=== PATIENT | male | born 1955 ===

== ENCOUNTER 2017-10-07 16:27 | Inpatient (IN) | payer MEDICARE, OTHER ==
[2017-10-07 17:37] LABS: % BASOPHILS 0.9 % (0.0-2.0); % EOSINOPHILS 0.6 % (0.0-5.0); % LYMPHOCYTES 24.1 % (20.0-50.0); % MONOCYTES 5.5 % (2.0-10.0); % NEUTROPHILS 68.9 % (40.0-80.0); BASOPHILE ABSOLUTE 0.1 Th/cumm (0-0.2); HEMATOCRIT 46.8 % (41.0-60); HEMOGLOBIN 15.4 gm/dL (12-16); LYMPHOCYTE ABSOLUTE 1.5 Th/cmm (1.5-3.0); MEAN CELL VOLUME 91.1 fl (80-99); MEAN PLATELET VOLUME 8.9 fl; MONOCYTE ABSOLUTE 0.3 Th/cmm (0.3-1.0); NEUTROPHILE ABSOLUTE 4.3 Th/cmm (1.8-8.0); PLATELET COUNT 184 Th/cmm (150-400); RED BLOOD COUNT 5.13 Mil/cmm (4.30-5.70); RED CELL DISTRIBUTION WIDTH 12.5 % (11.5-20.0); WHITE BLOOD COUNT 6.2 Th/cmm (4.8-10.8)
[2017-10-07 17:50] LABS: INR 0.98 (0.5-1.4); PROTHROMBIN TIME (TEST) 10.2 SECONDS (9.5-11.5)
[2017-10-07 17:56] LABS: ACETAMINOPHEN < 10.0 ug/mL (10.0-30.0); ALB/GLOB RATIO 1.5 (1.0-1.8); ALBUMIN 4.1 gm/dL (4.2-5.5); ALKALINE PHOSPHATASE 59 U/L (34-104); ANION GAP 14.8 (7.0-16.0); BILIRUBIN,TOTAL 0.8 mg/dL (0.3-1.0); BUN - UREA NITROGEN 21 mg/dL (7-25); CALCIUM SERUM 9.6 mg/dL (8.6-10.3); CARBON DIOXIDE 21.8 mEq/L (21.0-31.0); CHLORIDE 99 mEq/L (98-107); CREATININE - SERUM 0.7 mg/dL (0.7-1.3); GFR AFRICAN-AMERICAN > 60.0 ml/min (>90); GFR NON AFRICAN-AMERICAN > 60.0 ml/min; GLUCOSE 345 mg/dL (70-105); POTASSIUM SERUM 4.6 mEq/L (3.5-5.1); SALICYLATES (ASPIRIN) < 25.0 mg/L (30.0-100.0); SGOT 16 U/L (13-39); SGPT/ALT 10 U/L (7-52); SODIUM SERUM 131 mEq/L (136-145); TOTAL PROTEIN,SERUM 6.9 gm/dL (6.0-8.3)
[2017-10-07 17:58] LABS: URINE SOURCE CLEAN C
[2017-10-07 18:11] LABS: AMPHETAMINE URINE NEGATIVE (NEGATIVE); BARBITURATES URINE NEGATIVE (NEGATIVE); BENZODIAZEPINES QUAL URINE NEGATIVE (NEGATIVE); CANNABINOID THC NEGATIVE (NEGATIVE); COCAINE METABOLITE QUAL URINE NEGATIVE (NEGATIVE); METHADONE URINE NEGATIVE (NEGATIVE); METHAMPHETAMINES QUAL URINE NEGATIVE (NEGATIVE); OPIATES (MORPHINE) QUAL. URINE NEGATIVE (NEGATIVE); PHENCYCLIDINE (PCP) URINE NEGATIVE (NEGATIVE); TRICYCLICS (TCA) QUAL. URINE NEGATIVE (NEGATIVE)
[2017-10-07 18:12] LABS: URINE CLARITY HAZY (CLEAR); URINE COLOR YELLOW; URINE MICROSCOPIC INDICATED? YES
[2017-10-07 18:13] LABS: URINE BILIRUBIN NEGATIVE (NEGATIVE); URINE GLUCOSE (UA) >=1000 mg/dL (NEGATIVE); URINE KETONE NEGATIVE (NEGATIVE); URINE LEUKOCYTE ESTERASE NEGATIVE (NEGATIVE); URINE NITRATE POSITIVE (NEGATIVE)
[2017-10-07 18:14] LABS: URINE BLOOD NEGATIVE (NEGATIVE); URINE PH 5.5 (4.6 - 8.0); URINE PROTEIN TRACE mg/dL (NEGATIVE); URINE UROBILINOGEN 0.2 E.U./dL (0.2 - 1.0)
[2017-10-07 18:16] LABS: URINE BACTERIA 3+ /hpf (NONE SEEN); URINE EPITHELIAL CELLS OCCASIONAL /lpf (FEW); URINE RBC 0-2 /hpf (0-5)
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
[2017-10-07] MEDS ORDERED: Sulfamethoxazole/TMP 800/160mg Tab PO ONE (18:39)
[2017-10-07] MEDS ORDERED: Sulfamethoxazole/TMP 800/160mg Tab ONE (18:41)
[2017-10-07 22:02] VITALS: BP 103/53
[2017-10-08] MEDS: INSULIN ASPART SLIDING SCALE 100 UNITS/ML UNIT SUBQ SCH ×2 (07:09→12:13)
--- NOTE | 2017-10-08 09:17 | Diagnostic Imaging Report ---
Portable chest x-ray HISTORY: Shortness of breath. The heart is enlarged. No focal pulmonary processes. No hilar or mediastinal abnormalities. IMPRESSION: 1. No acute abnormalities 2. Cardiomegaly
--- NOTE | 2017-10-08 11:20 | Psychiatric Evaluation ---
DATE OF SERVICE: 10/07/2017 AGE: 62. SEX: Male. PHYSICIAN: Dr. Goldsmith. CHIEF COMPLAINT: Increased agitation and psychotic features. HISTORY OF PRESENT ILLNESS: The patient is a 62-year-old male who was transferred to the hospital because of increased agitation and irritability. The patient has been unable to follow any of the staff's directions and has been increasingly [facility]. The patient also has not been cooperative with staff and not cooperative with his treatment. The patient also has been in irritable and angry mood. The patient is on wheelchair. "I don't wanna be here. I want to go back." The patient did not know where he came from and he is argumentative and in angry mood. He was not able to tell me where he lives and he kept insisting that he wants to leave. Also, according to the evaluation report, it seems that the patient has been hearing voices and has been paranoid. He also seems to be restless. The patient also was not able to follow any of my instructions and when I was trying to calm him down he was not able to follow directions and kept agitated and rambling. PAST PSYCHIATRIC HISTORY: The patient has history of what seems to be is schizoaffective disorder. The patient has been taking Zyprexa and trazodone. PAST MEDICAL HISTORY: The patient has hypothyroidism as well as dyslipidemia and diabetes mellitus. Also, has a knee effusion and the patient is on wheelchair. SOCIAL HISTORY: The patient lives in [facility]. He denies any alcohol or street drug use. No legal issues. ALLERGIES: No known allergies. MENTAL STATUS EXAMINATION: The patient appears older than stated age, on the wheelchair. Agitated and in irritable mood. Thought processes are circumstantial with flight of ideas. The patient denied auditory or visual hallucinations, but actively responding to stimuli. The patient denies any suicidal or homicidal ideations. The patient is alert and oriented to time, place, person, and situation. Unable to assess his memory at this time, although it seems to be impaired for short-term memory and he was not able to tell me where does he live or any other information about his current living arrangement. Seems to be of average intelligence based on his verbal ability. ASSESSMENT: PRIMARY DIAGNOSES: Schizoaffective disorder, bipolar type, severe, with psychotic features. TREATMENT PLAN: Continue to monitor his behavior and his condition closely. Also, we will monitor psychotropic medications and will restart the Zyprexa and adjust the dose. ESTIMATED LENGTH OF STAY: 5-7 days. THE PATIENT'S STRENGTHS AND WEAKNESSES: The patient's strength is not clear at this time. Weaknesses are his agitation and poor impulse control. AFTER DISCHARGE PLAN: Outpatient treatment and followup will continue as an outpatient. CRITERIA FOR DISCHARGE: The patient will not be agitated or psychotic and will stabilize psychotropic medications and will establish outpatient treatment plans. JOB# [id number]
--- NOTE | 2017-10-08 14:45 | Internal Medicine Prog Note ---
Internal Medicine Subjective - Subjective Service Date: 10/08/17 ([id number] hn ) Internal Medicine Objective - Results Result Diagrams: 10/07/17 17:34 10/07/17 17:34 Recent Labs: Laboratory Last Values WBC 6.2 Th/cmm (4.8-10.8) 10/07/17 17:34 RBC 5.13 Mil/cmm (4.30-5.70) 10/07/17 17:34 Hgb 15.4 gm/dL (12-16) 10/07/17 17:34 Hct 46.8 % (41.0-60) 10/07/17 17:34 MCV 91.1 fl (80-99) 10/07/17 17:34 MCH 30.0 pg (26.0-30.0) 10/07/17 17:34 MCHC Differential 33.0 pg (28.0-36.0) 10/07/17 17:34 RDW 12.5 % (11.5-20.0) 10/07/17 17:34 Plt Count 184 Th/cmm (150-400) 10/07/17 17:34 MPV 8.9 fl 10/07/17 17:34 Neutrophils % 68.9 % (40.0-80.0) 10/07/17 17:34 Lymphocytes % 24.1 % (20.0-50.0) 10/07/17 17:34 Monocytes % 5.5 % (2.0-10.0) 10/07/17 17:34 Eosinophils % 0.6 % (0.0-5.0) 10/07/17 17:34 Basophils % 0.9 % (0.0-2.0) 10/07/17 17:34 PT 10.2 SECONDS (9.5-11.5) 10/07/17 17:34 INR 0.98 (0.5-1.4) 10/07/17 17:34 Sodium 131 mEq/L (136-145) L 10/07/17 17:34 Potassium 4.6 mEq/L (3.5-5.1) 10/07/17 17:34 Chloride 99 mEq/L (98-107) 10/07/17 17:34 Carbon Dioxide 21.8 mEq/L (21.0-31.0) 10/07/17 17:34 Anion Gap 14.8 (7.0-16.0) 10/07/17 17:34 BUN 21 mg/dL (7-25) 10/07/17 17:34 Creatinine 0.7 mg/dL (0.7-1.3) 10/07/17 17:34 Est GFR ( Amer) > 60.0 ml/min (>90) 10/07/17 17:34 Est GFR (Non-Af Amer) > 60.0 ml/min 10/07/17 17:34 BUN/Creatinine Ratio 30.0 10/07/17 17:34 Glucose 345 mg/dL (70-105) H 10/07/17 17:34 POC Glucose 239 MG/DL (70 - 105) H 10/08/17 05:50 Calcium 9.6 mg/dL (8.6-10.3) 10/07/17 17:34 Total Bilirubin 0.8 mg/dL (0.3-1.0) 10/07/17 17:34 AST 16 U/L (13-39) 10/07/17 17:34 ALT 10 U/L (7-52) 10/07/17 17:34 Alkaline Phosphatase 59 U/L (34-104) 10/07/17 17:34 Total Protein 6.9 gm/dL (6.0-8.3) 10/07/17 17:34 Albumin 4.1 gm/dL (4.2-5.5) L 10/07/17 17:34 Globulin 2.8 gm/dL 10/07/17 17:34 Albumin/Globulin Ratio 1.5 (1.0-1.8) 10/07/17 17:34 Urine Source CLEAN C 10/07/17 17:51 Urine Color YELLOW 10/07/17 17:51 Urine Clarity HAZY (CLEAR) 10/07/17 17:51 Urine pH 5.5 (4.6 - 8.0) 10/07/17 17:51 Ur Specific [place] 1.020 (1.005-1.030) 10/07/17 17:51 Urine Protein TRACE mg/dL (NEGATIVE) 10/07/17 17:51 Urine Glucose (UA) >=1000 mg/dL (NEGATIVE) H 10/07/17 17:51 Urine Ketones NEGATIVE mg/dL (NEGATIVE) 10/07/17 17:51 Urine Blood NEGATIVE (NEGATIVE) 10/07/17 17:51 Urine Nitrate POSITIVE (NEGATIVE) H 10/07/17 17:51 Urine Bilirubin NEGATIVE (NEGATIVE) 10/07/17 17:51 Urine Urobilinogen 0.2 E.U./dL (0.2 - 1.0) 10/07/17 17:51 Ur Leukocyte Esterase NEGATIVE (NEGATIVE) 10/07/17 17:51 Urine RBC 0-2 /hpf (0-5) H 10/07/17 17:51 Urine WBC 6-10 /hpf (0-5) 10/07/17 17:51 Ur Epithelial Cells OCCASIONAL /lpf (FEW) 10/07/17 17:51 Urine Bacteria 3+ /hpf (NONE SEEN) H 10/07/17 17:51 Salicylates < 25.0 mg/L (30.0-100.0) L 10/07/17 17:34 Urine Opiates Screen NEGATIVE (NEGATIVE) 10/07/17 17:51 Urine Methadone Screen NEGATIVE (NEGATIVE) 10/07/17 17:51 Acetaminophen < 10.0 ug/mL (10.0-30.0) L 10/07/17 17:34 Ur Barbiturates Screen NEGATIVE (NEGATIVE) 10/07/17 17:51 Ur Tricyclics Screen NEGATIVE (NEGATIVE) 10/07/17 17:51 Ur Phencyclidine Scrn NEGATIVE (NEGATIVE) 10/07/17 17:51 Amphetamines Screen NEGATIVE (NEGATIVE) 10/07/17 17:51 U Methamphetamines Scrn NEGATIVE (NEGATIVE) 10/07/17 17:51 U Benzodiazepines Scrn NEGATIVE (NEGATIVE) 10/07/17 17:51 U Cocaine Metab Screen NEGATIVE (NEGATIVE) 10/07/17 17:51 U Cannabinoids Screen NEGATIVE (NEGATIVE) 10/07/17 17:51 Ethyl Alcohol < 10 mg/dL (0-10) 10/07/17 17:34 - Physical Exam Vitals and I&O: Vital Signs Temp 98.2 F 10/08/17 14:28 Pulse 78 10/08/17 14:28 Resp 16 10/08/17 14:28 BP 107/54 10/08/17 14:28 Pulse Ox 95 10/08/17 14:28 Intake & Output 10/07/17 10/08/17 10/08/17 18:59 06:59 18:59 Weight (lbs) 156 lb Other: Weight Source Estimated Active Medications: Current Medications Acetaminophen (Tylenol) 650 mg PO Q4HR PRN PRN Reason: Mild Pain / Temp above 100 Stop: 12/06/17 21:40 Atorvastatin Calcium (Lipitor) 10 mg PO HS GABRIELLE; Protocol Stop: 12/07/17 20:59 Glyburide (Diabeta) 5 mg PO BIDAC [facility]LE Stop: 12/07/17 16:29 Hydroxyzine Pamoate (Vistaril) 50 mg PO BID [facility]ELLE; Protocol Stop: 12/07/17 08:59 Last Admin: 10/08/17 09:11 Dose: 50 mg Insulin Aspart (Novolog) 0 units SUBQ ACHS [facility]ELLE; Protocol Stop: 12/07/17 16:29 Levothyroxine Sodium (Synthroid) 0.025 mg PO QDAC [facility]LE Stop: 12/08/17 07:29 Lorazepam (Ativan) 0.5 mg PO Q4HR PRN; Protocol PRN Reason: Anxiety Stop: 11/06/17 21:40 Last Admin: 10/08/17 09:11 Dose: 0.5 mg Metformin HCl (Glucophage) 850 mg PO TID G[facility]RIELLE Stop: 12/07/17 13:59 Last Admin: 10/08/17 14:16 Dose: 850 mg Olanzapine (Zyprexa) 15 mg PO HS G[facility]RIELLE; Protocol Stop: 12/07/17 20:59 Trazodone HCl (Desyrel) 50 mg PO HS GABRIELLE; Protocol Stop: 12/07/17 20:59 Zolpidem Tartrate (Ambien) 5 mg PO HS PRN PRN Reason: Insomnia Stop: 12/06/17 21:40
--- NOTE | 2017-10-08 17:07 | History & Physical ---
ADMIT DATE: 10/08/2017 This is a history and physical dictated for Dr. Lavell Cunningham. CHIEF COMPLAINT: Agitation. HISTORY OF PRESENT ILLNESS: This is a 62-year-old male, who is a resident of [facility], who was admitted here to the Geropsych Unit due to agitation and hearing voices. PAST MEDICAL HISTORY: Diabetes, dyslipidemia, hypothyroid, right knee effusion, right hip disorder and bunion. SOCIAL HISTORY: The patient is currently a smoker. The patient resides at a residential requiring 24-hour nursing care. PAST SURGICAL HISTORY: Right knee effusion. PSYCHIATRIC HISTORY: Paranoid schizophrenia. FAMILY HISTORY: Noncontributory. REVIEW OF SYSTEMS: GENERAL: Denies any fevers and chills. CARDIOVASCULAR: Denies chest pain. RESPIRATORY: Denies shortness of breath. GASTROINTESTINAL: Denies nausea, vomiting, or abdominal pain. GENITOURINARY: Denies increased frequency or dysuria. NEUROLOGIC: No headaches, seizures, or syncope.. All systems are reviewed and are negative. PHYSICAL EXAMINATION: GENERAL: The patient is awake, alert, irritated, no apparent distress. VITAL SIGNS: Temperature 98.2, heart rate 78, blood pressure 107/54, respirations 16, O2 95%. HEENT: Head is normocephalic, atraumatic. NECK: Supple. No mass. LUNGS: Clear bilaterally. HEART: Regular rhythm. . ABDOMEN: Soft, nontender. LABORATORY DATA: WBC 6.2, H and H 15.4 and 46.8, platelets of 184. Sodium 131, potassium 4.6, chloride 99, BUN 21, creatinine 0.7. The patient had a urinalysis done, positive for UTI. ASSESSMENT: 1. Agitation. 2. Acute urinary tract infection. 3. Diabetes. 4. Dyslipidemia. 5. Hypothyroid. 6. History of right knee effusion and right hip disorder. PLAN: We will do Accu-Cheks with high dose sliding scale. Fall precautions will be initiated. We add Levaquin for acute UTI. We will continue to monitor this patient. JOB# [id number]
[2017-10-08 17:24] LABS: A1C % 9.5 % (4.0-6.0)
[2017-10-08] MEDS: Atorvastatin Calcium 10 MG TAB PO SCH (21:10)
[2017-10-08] MEDS: INSULIN ASPART, RECOMBINANT 100 UNITS/ML SUBQ SCH (21:33)
[2017-10-09] MEDS: INSULIN ASPART, RECOMBINANT 100 UNITS/ML SUBQ SCH ×5 (06:46→20:51)
[2017-10-09] MEDS: Levothyroxine 0.025 Mg Tab PO SCH (06:53)
--- NOTE | 2017-10-09 15:12 | Internal Medicine Prog Note ---
Internal Medicine Subjective - Subjective Service Date: 10/09/17 Patient seen and examined:: with staff Patient is:: awake Per staff patient has:: tolerating meds Internal Medicine Objective - Results Result Diagrams: 10/07/17 17:34 10/07/17 17:34 Recent Labs: Laboratory Last Values WBC 6.2 Th/cmm (4.8-10.8) 10/07/17 17:34 RBC 5.13 Mil/cmm (4.30-5.70) 10/07/17 17:34 Hgb 15.4 gm/dL (12-16) 10/07/17 17:34 Hct 46.8 % (41.0-60) 10/07/17 17:34 MCV 91.1 fl (80-99) 10/07/17 17:34 MCH 30.0 pg (26.0-30.0) 10/07/17 17:34 MCHC Differential 33.0 pg (28.0-36.0) 10/07/17 17:34 RDW 12.5 % (11.5-20.0) 10/07/17 17:34 Plt Count 184 Th/cmm (150-400) 10/07/17 17:34 MPV 8.9 fl 10/07/17 17:34 Neutrophils % 68.9 % (40.0-80.0) 10/07/17 17:34 Lymphocytes % 24.1 % (20.0-50.0) 10/07/17 17:34 Monocytes % 5.5 % (2.0-10.0) 10/07/17 17:34 Eosinophils % 0.6 % (0.0-5.0) 10/07/17 17:34 Basophils % 0.9 % (0.0-2.0) 10/07/17 17:34 PT 10.2 SECONDS (9.5-11.5) 10/07/17 17:34 INR 0.98 (0.5-1.4) 10/07/17 17:34 Sodium 131 mEq/L (136-145) L 10/07/17 17:34 Potassium 4.6 mEq/L (3.5-5.1) 10/07/17 17:34 Chloride 99 mEq/L (98-107) 10/07/17 17:34 Carbon Dioxide 21.8 mEq/L (21.0-31.0) 10/07/17 17:34 Anion Gap 14.8 (7.0-16.0) 10/07/17 17:34 BUN 21 mg/dL (7-25) 10/07/17 17:34 Creatinine 0.7 mg/dL (0.7-1.3) 10/07/17 17:34 Est GFR ( Amer) > 60.0 ml/min (>90) 10/07/17 17:34 Est GFR (Non-Af Amer) > 60.0 ml/min 10/07/17 17:34 BUN/Creatinine Ratio 30.0 10/07/17 17:34 Glucose 345 mg/dL (70-105) H 10/07/17 17:34 POC Glucose 305 MG/DL (70 - 105) H 10/09/17 11:32 Hemoglobin A1c % 9.5 % (4.0-6.0) H 10/07/17 17:24 Calcium 9.6 mg/dL (8.6-10.3) 10/07/17 17:34 Total Bilirubin 0.8 mg/dL (0.3-1.0) 10/07/17 17:34 AST 16 U/L (13-39) 10/07/17 17:34 ALT 10 U/L (7-52) 10/07/17 17:34 Alkaline Phosphatase 59 U/L (34-104) 10/07/17 17:34 Total Protein 6.9 gm/dL (6.0-8.3) 10/07/17 17:34 Albumin 4.1 gm/dL (4.2-5.5) L 10/07/17 17:34 Globulin 2.8 gm/dL 10/07/17 17:34 Albumin/Globulin Ratio 1.5 (1.0-1.8) 10/07/17 17:34 Urine Source CLEAN C 10/07/17 17:51 Urine Color YELLOW 10/07/17 17:51 Urine Clarity HAZY (CLEAR) 10/07/17 17:51 Urine pH 5.5 (4.6 - 8.0) 10/07/17 17:51 Ur Specific [place] 1.020 (1.005-1.030) 10/07/17 17:51 Urine Protein TRACE mg/dL (NEGATIVE) 10/07/17 17:51 Urine Glucose (UA) >=1000 mg/dL (NEGATIVE) H 10/07/17 17:51 Urine Ketones NEGATIVE mg/dL (NEGATIVE) 10/07/17 17:51 Urine Blood NEGATIVE (NEGATIVE) 10/07/17 17:51 Urine Nitrate POSITIVE (NEGATIVE) H 10/07/17 17:51 Urine Bilirubin NEGATIVE (NEGATIVE) 10/07/17 17:51 Urine Urobilinogen 0.2 E.U./dL (0.2 - 1.0) 10/07/17 17:51 Ur Leukocyte Esterase NEGATIVE (NEGATIVE) 10/07/17 17:51 Urine RBC 0-2 /hpf (0-5) H 10/07/17 17:51 Urine WBC 6-10 /hpf (0-5) 10/07/17 17:51 Ur Epithelial Cells OCCASIONAL /lpf (FEW) 10/07/17 17:51 Urine Bacteria 3+ /hpf (NONE SEEN) H 10/07/17 17:51 Salicylates < 25.0 mg/L (30.0-100.0) L 10/07/17 17:34 Urine Opiates Screen NEGATIVE (NEGATIVE) 10/07/17 17:51 Urine Methadone Screen NEGATIVE (NEGATIVE) 10/07/17 17:51 Acetaminophen < 10.0 ug/mL (10.0-30.0) L 10/07/17 17:34 Ur Barbiturates Screen NEGATIVE (NEGATIVE) 10/07/17 17:51 Ur Tricyclics Screen NEGATIVE (NEGATIVE) 10/07/17 17:51 Ur Phencyclidine Scrn NEGATIVE (NEGATIVE) 10/07/17 17:51 Amphetamines Screen NEGATIVE (NEGATIVE) 10/07/17 17:51 U Methamphetamines Scrn NEGATIVE (NEGATIVE) 10/07/17 17:51 U Benzodiazepines Scrn NEGATIVE (NEGATIVE) 10/07/17 17:51 U Cocaine Metab Screen NEGATIVE (NEGATIVE) 10/07/17 17:51 U Cannabinoids Screen NEGATIVE (NEGATIVE) 10/07/17 17:51 Ethyl Alcohol < 10 mg/dL (0-10) 10/07/17 17:34 - Physical Exam Vitals and I&O: Vital Signs Temp 98.2 F 10/08/17 14:28 Pulse 78 10/08/17 14:28 Resp 16 10/08/17 14:28 BP 107/54 10/08/17 14:28 Pulse Ox 95 10/08/17 14:28 Intake & Output 10/08/1718 10/09/17 18:59 06:59 18:59 Other: # Voids 3 # Bowel Movements 1 Active Medications: Current Medications Acetaminophen (Tylenol) 650 mg PO Q4HR PRN PRN Reason: Mild Pain / Temp above 100 Stop: 12/06/17 21:40 Atorvastatin Calcium (Lipitor) 10 mg PO HS [facility]; Protocol Stop: 12/07/17 20:59 Last Admin: 10/08/17 21:10 Dose: 10 mg Glyburide (Diabeta) 5 mg PO BIDAC [facility] Stop: 12/07/17 16:29 Last Admin: 10/09/17 06:53 Dose: Not Given Hydroxyzine Pamoate (Vistaril) 50 mg PO BID [facility]; Protocol Stop: 12/07/17 08:59 Last Admin: 10/09/17 08:44 Dose: 50 mg Insulin Aspart (Novolog) 0 units SUBQ ACHS [facility]; Protocol Stop: 12/07/17 16:29 Last Admin: 10/09/17 11:46 Dose: 6 units Levofloxacin (Levaquin) 500 mg PO DAILY [facility] Stop: 12/08/17 08:59 Last Admin: 10/09/17 08:44 Dose: 500 mg Levothyroxine Sodium (Synthroid) 0.025 mg PO QDAC [facility] Stop: 12/08/17 07:29 Last Admin: 10/09/17 06:53 Dose: Not Given Lorazepam (Ativan) 0.5 mg PO Q4HR PRN; Protocol PRN Reason: Anxiety Stop: 11/06/17 21:40 Last Admin: 10/08/17 09:11 Dose: 0.5 mg Metformin HCl (Glucophage) 850 mg PO TID [facility] Stop: 12/07/17 13:59 Last Admin: 10/09/17 13:41 Dose: Not Given Olanzapine (Zyprexa) 15 mg PO HS [facility]; Protocol Stop: 12/07/17 20:59 Last Admin: 10/08/17 21:10 Dose: 15 mg Trazodone HCl (Desyrel) 50 mg PO HS [facility]; Protocol Stop: 12/07/17 20:59 Last Admin: 10/08/17 21:10 Dose: 50 mg Zolpidem Tartrate (Ambien) 5 mg PO HS PRN PRN Reason: Insomnia Stop: 12/06/17 21:40 General: alert HEENT: NC/AT, PERRLA Neck: Supple Lungs: CTAB Cardiovascular: RRR, Normal S1, Normal S2, without murmur Extremities: excoriation Neurological: alert Internal Medicine Assmt/Plan - Assessment Assessment: acute uti with e.coli dm dyslipidemia hypothyroidism - Plan Plan: will add levaquin monitor bp continue current plan of care Nutritional Asmnt/Malnutr-PDOC - Dietary Evaluation Malnutrition Findings (Please click <Entered> for more info): Nutritional Asmnt/Malnutrition Start: 10/08/17 14: 31 Text: Status: Complete Freq: Protocol: Document 10/08/17 14:31 CARYN (Rec: 10/08/17 15:05 CARYN [id number]) Nutritional Asmnt/Malnutrition Patient General Information Nutritional Screening High Risk Diagnosis psychosis Pertinent Medical Hx/Surgical Hx DM, dyslipidemia, thyroid disorder, right knee fusion, gait abn, schizophrenia Subjective Information Pt seen on wheelchair waiting for ciggratte. Pt stated he did not like the lunch, he only likes burger and fries, mac & cheese, does not like any fruits or veggies. Glucose 345 at admission noted. Not able to provide diabetic education d/t pt mental status . Per EMR, pt consumed 100% of breakfast today. Current Diet [facility]/ [facility] Pertinent Medications diabeta, novolog, synthroid, glucophage Pertinent Labs 10/07 Na 131, glucose 345, POC 239 Nutritional Hx/Data Height 5 ft 4 in Height (Calculated Centimeters) 162.6 Current Weight (lbs) 156 lb Weight (Calculated Kilograms) 70.8 Weight (Calculated Grams) 26644.4 [place] Body Weight 130 Body Mass Index (BMI) 26.7 Weight Status Overweight GI Symptoms GI Symptoms None Last BM not indicated Difficult in: None Food Allergies Yes: seafood Skin Integrity/Comment: intact Current %PO Good (75-100%) Estimated Nutritional Goals BEE in Kcals: Using Current wt Calories/Kcals/Kg 23-27 Kcals Calculated 2965-1495 Protein: Using Current wt Protein g/k Protein Calculated 79 Fluid: ml 1817-2133ml (1ml/kcal) Nutritional Problem 1. Problem Problem altered nutrition related labs Etiology hx of DM Signs/Symptoms: glucose 345, POC 239 Malnutrition Alert Is there a minimum of two criteria No selected? Query Text:Check all the applicable criteria. A minimum of two criteria are recommended for diagnosis of either severe or non-severe malnutrition. Malnutrition Related to Morbid Obesity Malnutrition related to morbid obesity No Intervention/Recommendation Comments 1. Continue with CCHO 60gm diet as ordered. 2. Monitor PO intake, wt, labs and skin integrity 3. F/U as moderate risk in 3-5 days, 10/11-10/13, PO check Expected Outcomes/Goals Expected Outcomes/Goals 1. PO intake to meet at least 75% of nutritional needs. 2. Wt stability, skin to remain intact, labs to approach WNL.
[2017-10-09] MEDS: Atorvastatin Calcium 10 MG TAB PO SCH (20:48)
--- NOTE | 2017-10-09 23:23 | Progress Notes ---
DATE: 10/09/2017 Case was discussed with staff of the patient, reviewed records 62-year-old male who was admitted on 10/07/2017 because of agitation and psychosis. He was irritable, unable to follow staff direction and has been increasingly agitated in the [place] he [place]. This is a patient of mine seen at ____ [facility], has not been cooperative with the staff and in a very angry mood. He reported that they want to be here. The patient when I talked to him, he was able to tell me the date, but he was irritable. He is easily agitated, unable to make safe plan for self-care. He is on a wheelchair. He also has a problem with vision in his left eye. He is diabetic. He is on atorvastatin, glyburide, insulin, Levaquin, and olanzapine 50 mg at bedtime, trazodone 50 mg at bedtime with no side effects, no sedation, no nausea, no extrapyramidal symptoms. We will continue outpatient group therapy, milieu therapy, adjust medication as needed. JOB# [id number]
[2017-10-10] MEDS: INSULIN ASPART, RECOMBINANT 100 UNITS/ML SUBQ SCH ×5 (06:34→21:12)
[2017-10-10] MEDS: Levothyroxine 0.025 Mg Tab PO SCH (06:34)
[2017-10-10] MEDS ORDERED: Probiotic Screen MC PRN (11:04)
--- NOTE | 2017-10-10 14:05 | Internal Medicine Prog Note ---
Internal Medicine Subjective - Subjective Service Date: 10/10/17 Patient is:: awake Per staff patient has:: tolerating meds Internal Medicine Objective - Results Result Diagrams: 10/07/17 17:34 10/07/17 17:34 Recent Labs: Laboratory Last Values WBC 6.2 Th/cmm (4.8-10.8) 10/07/17 17:34 RBC 5.13 Mil/cmm (4.30-5.70) 10/07/17 17:34 Hgb 15.4 gm/dL (12-16) 10/07/17 17:34 Hct 46.8 % (41.0-60) 10/07/17 17:34 MCV 91.1 fl (80-99) 10/07/17 17:34 MCH 30.0 pg (26.0-30.0) 10/07/17 17:34 MCHC Differential 33.0 pg (28.0-36.0) 10/07/17 17:34 RDW 12.5 % (11.5-20.0) 10/07/17 17:34 Plt Count 184 Th/cmm (150-400) 10/07/17 17:34 MPV 8.9 fl 10/07/17 17:34 Neutrophils % 68.9 % (40.0-80.0) 10/07/17 17:34 Lymphocytes % 24.1 % (20.0-50.0) 10/07/17 17:34 Monocytes % 5.5 % (2.0-10.0) 10/07/17 17:34 Eosinophils % 0.6 % (0.0-5.0) 10/07/17 17:34 Basophils % 0.9 % (0.0-2.0) 10/07/17 17:34 PT 10.2 SECONDS (9.5-11.5) 10/07/17 17:34 INR 0.98 (0.5-1.4) 10/07/17 17:34 Sodium 131 mEq/L (136-145) L 10/07/17 17:34 Potassium 4.6 mEq/L (3.5-5.1) 10/07/17 17:34 Chloride 99 mEq/L (98-107) 10/07/17 17:34 Carbon Dioxide 21.8 mEq/L (21.0-31.0) 10/07/17 17:34 Anion Gap 14.8 (7.0-16.0) 10/07/17 17:34 BUN 21 mg/dL (7-25) 10/07/17 17:34 Creatinine 0.7 mg/dL (0.7-1.3) 10/07/17 17:34 Est GFR ( Amer) > 60.0 ml/min (>90) 10/07/17 17:34 Est GFR (Non-Af Amer) > 60.0 ml/min 10/07/17 17:34 BUN/Creatinine Ratio 30.0 10/07/17 17:34 Glucose 345 mg/dL (70-105) H 10/07/17 17:34 POC Glucose 271 MG/DL (70 - 105) H 10/10/17 07:17 Hemoglobin A1c % 9.5 % (4.0-6.0) H 10/07/17 17:24 Calcium 9.6 mg/dL (8.6-10.3) 10/07/17 17:34 Total Bilirubin 0.8 mg/dL (0.3-1.0) 10/07/17 17:34 AST 16 U/L (13-39) 10/07/17 17:34 ALT 10 U/L (7-52) 10/07/17 17:34 Alkaline Phosphatase 59 U/L (34-104) 10/07/17 17:34 Total Protein 6.9 gm/dL (6.0-8.3) 10/07/17 17:34 Albumin 4.1 gm/dL (4.2-5.5) L 10/07/17 17:34 Globulin 2.8 gm/dL 10/07/17 17:34 Albumin/Globulin Ratio 1.5 (1.0-1.8) 10/07/17 17:34 Urine Source CLEAN C 10/07/17 17:51 Urine Color YELLOW 10/07/17 17:51 Urine Clarity HAZY (CLEAR) 10/07/17 17:51 Urine pH 5.5 (4.6 - 8.0) 10/07/17 17:51 Ur Specific [place] 1.020 (1.005-1.030) 10/07/17 17:51 Urine Protein TRACE mg/dL (NEGATIVE) 10/07/17 17:51 Urine Glucose (UA) >=1000 mg/dL (NEGATIVE) H 10/07/17 17:51 Urine Ketones NEGATIVE mg/dL (NEGATIVE) 10/07/17 17:51 Urine Blood NEGATIVE (NEGATIVE) 10/07/17 17:51 Urine Nitrate POSITIVE (NEGATIVE) H 10/07/17 17:51 Urine Bilirubin NEGATIVE (NEGATIVE) 10/07/17 17:51 Urine Urobilinogen 0.2 E.U./dL (0.2 - 1.0) 10/07/17 17:51 Ur Leukocyte Esterase NEGATIVE (NEGATIVE) 10/07/17 17:51 Urine RBC 0-2 /hpf (0-5) H 10/07/17 17:51 Urine WBC 6-10 /hpf (0-5) 10/07/17 17:51 Ur Epithelial Cells OCCASIONAL /lpf (FEW) 10/07/17 17:51 Urine Bacteria 3+ /hpf (NONE SEEN) H 10/07/17 17:51 Salicylates < 25.0 mg/L (30.0-100.0) L 10/07/17 17:34 Urine Opiates Screen NEGATIVE (NEGATIVE) 10/07/17 17:51 Urine Methadone Screen NEGATIVE (NEGATIVE) 10/07/17 17:51 Acetaminophen < 10.0 ug/mL (10.0-30.0) L 10/07/17 17:34 Ur Barbiturates Screen NEGATIVE (NEGATIVE) 10/07/17 17:51 Ur Tricyclics Screen NEGATIVE (NEGATIVE) 10/07/17 17:51 Ur Phencyclidine Scrn NEGATIVE (NEGATIVE) 10/07/17 17:51 Amphetamines Screen NEGATIVE (NEGATIVE) 10/07/17 17:51 U Methamphetamines Scrn NEGATIVE (NEGATIVE) 10/07/17 17:51 U Benzodiazepines Scrn NEGATIVE (NEGATIVE) 10/07/17 17:51 U Cocaine Metab Screen NEGATIVE (NEGATIVE) 10/07/17 17:51 U Cannabinoids Screen NEGATIVE (NEGATIVE) 10/07/17 17:51 Ethyl Alcohol < 10 mg/dL (0-10) 10/07/17 17:34 - Physical Exam Vitals and I&O: Vital Signs Temp 0 F 10/10/17 06:02 Pulse 84 10/09/17 14:00 Resp 18 10/09/17 14:00 BP 122/67 10/09/17 14:00 Pulse Ox 97 10/09/17 14:00 Intake & Output 10/09/17 10/10/17 10/10/17 18:59 06:59 18:59 Intake Total 120 Balance 120 Intake: Oral 120 Other: # Voids 3 3 # Bowel Movements 0 0 Active Medications: Current Medications Acetaminophen (Tylenol) 650 mg PO Q4HR PRN PRN Reason: Mild Pain / Temp above 100 Stop: 12/06/17 21:40 Atorvastatin Calcium (Lipitor) 10 mg PO HS [facility]; Protocol Stop: 12/07/17 20:59 Last Admin: 10/09/17 20:48 Dose: 10 mg Glyburide (Diabeta) 5 mg PO BIDAC [facility] Stop: 12/07/17 16:29 Last Admin: 10/10/17 06:34 Dose: Not Given Hydroxyzine Pamoate (Vistaril) 50 mg PO BID [facility]; Protocol Stop: 12/07/17 08:59 Last Admin: 10/10/17 09:14 Dose: 50 mg Insulin Aspart (Novolog) 0 units SUBQ ACHS [facility]; Protocol Stop: 12/07/17 16:29 Last Admin: 10/10/17 11:33 Dose: Not Given Lactobacillus Rhamnosus (Culturelle 15b) 1 each PO DAILY [facility] Stop: 12/09/17 13:59 Levofloxacin (Levaquin) 500 mg PO DAILY [facility] Stop: 12/08/17 08:59 Last Admin: 10/10/17 09:14 Dose: 500 mg Levothyroxine Sodium (Synthroid) 0.025 mg PO QDAC [facility] Stop: 12/08/17 07:29 Last Admin: 10/10/17 06:34 Dose: Not Given Lorazepam (Ativan) 0.5 mg PO Q4HR PRN; Protocol PRN Reason: Anxiety Stop: 11/06/17 21:40 Last Admin: 10/08/17 09:11 Dose: 0.5 mg Metformin HCl (Glucophage) 850 mg PO TID [facility] Stop: 12/07/17 13:59 Last Admin: 10/10/17 09:14 Dose: 850 mg Miscellaneous (Probiotic Screen) 1 ea MC PRN PRN PRN Reason: PROTOCOL Stop: 12/09/17 11:03 Mupirocin (Bactroban Oint) 1 appl NS BID [facility] Stop: 10/19/17 16:59 Last Admin: 10/10/17 09:15 Dose: 1 appl Olanzapine (Zyprexa) 15 mg PO HS [facility]; Protocol Stop: 12/07/17 20:59 Last Admin: 10/09/17 20:48 Dose: 15 mg Trazodone HCl (Desyrel) 50 mg PO HS [facility]; Protocol Stop: 12/07/17 20:59 Last Admin: 10/09/17 20:49 Dose: 50 mg Zolpidem Tartrate (Ambien) 5 mg PO HS PRN PRN Reason: Insomnia Stop: 12/06/17 21:40 Last Admin: 10/09/17 20:48 Dose: 5 mg General: alert HEENT: NC/AT, PERRLA Neck: Supple Lungs: CTAB Cardiovascular: RRR, Normal S1, Normal S2, without murmur Extremities: excoriation Neurological: alert Internal Medicine Assmt/Plan - Assessment Assessment: acute uti with e.coli dm dyslipidemia hypothyroidism - Plan Plan: continue with levaquin monitor bp continue current plan of care Nutritional Asmnt/Malnutr-PDOC - Dietary Evaluation Malnutrition Findings (Please click <Entered> for more info): Nutritional Asmnt/Malnutrition Start: 10/08/17 14: 31 Text: Status: Complete Freq: Protocol: Document 10/08/17 14:31 LCHENG (Rec: 10/08/17 15:05 [email or web address] [id number]) Nutritional Asmnt/Malnutrition Patient General Information Nutritional Screening High Risk Diagnosis psychosis Pertinent Medical Hx/Surgical Hx DM, dyslipidemia, thyroid disorder, right knee fusion, gait abn, schizophrenia Subjective Information Pt seen on wheelchair waiting for ciggratte. Pt stated he did not like the lunch, he only likes burger and fries, mac & cheese, does not like any fruits or veggies. Glucose 345 at admission noted. Not able to provide diabetic education d/t pt mental status . Per EMR, pt consumed 100% of breakfast today. Current Diet Order/ Nutrition Support CCHO-60gm Pertinent Medications diabeta, novolog, synthroid, glucophage Pertinent Labs 10/07 Na 131, glucose 345, POC 239 Nutritional Hx/Data Height 5 ft 4 in Height (Calculated Centimeters) 162.6 Current Weight (lbs) 156 lb Weight (Calculated Kilograms) 70.8 Weight (Calculated Grams) 19853.4 [place] Body Weight 130 Body Mass Index (BMI) 26.7 Weight Status Overweight GI Symptoms GI Symptoms None Last BM not indicated Difficult in: None Food Allergies Yes: seafood Skin Integrity/Comment: intact Current %PO Good (75-100%) Estimated Nutritional Goals BEE in Kcals: Using Current wt Calories/Kcals/Kg 23-27 Kcals Calculated 0976-6633 Protein: Using Current wt Protein g/k Protein Calculated 79 Fluid: ml 1817-2133ml (1ml/kcal) Nutritional Problem 1. Problem Problem altered nutrition related labs Etiology hx of DM Signs/Symptoms: glucose 345, POC 239 Malnutrition Alert Is there a minimum of two criteria No selected? Query Text:Check all the applicable criteria. A minimum of two criteria are recommended for diagnosis of either severe or non-severe malnutrition. Malnutrition Related to Morbid Obesity Malnutrition related to morbid obesity No Intervention/Recommendation Comments 1. Continue with CCHO 60gm diet as ordered. 2. Monitor PO intake, wt, labs and skin integrity 3. F/U as moderate risk in 3-5 days, 10/11-10/13, PO check Expected Outcomes/Goals Expected Outcomes/Goals 1. PO intake to meet at least 75% of nutritional needs. 2. Wt stability, skin to remain intact, labs to approach WNL.
[2017-10-10] MEDS: Lactobacillus Rhamnosus GG 15 Billion CFU CAP.SPRINK PO SCH (14:18)
[2017-10-10] MEDS: Atorvastatin Calcium 10 MG TAB PO SCH (21:04)
--- NOTE | 2017-10-10 22:01 | Progress Notes ---
DATE: 10/10/2017 Case was discussed with staff of the patient, reviewed records. The patient continues to be unpredictable, impulsive, needing redirection. Continues to have poor insight. Continues to have ____, agitation, irritability, and preoccupied with discharge. He is also on antibiotic. He continues to have episodes of agitation, irritability, and responding poorly to redirections. No side effects with the medication, no sedation, no nausea, no extrapyramidal symptoms. He is also on atorvastatin, glyburide, insulin and metformin and we will continue outpatient group therapy, milieu therapy, and adjust medication as needed. JOB# [id number]
[2017-10-11] MEDS: INSULIN ASPART, RECOMBINANT 100 UNITS/ML SUBQ SCH ×4 (06:44→22:00)
[2017-10-11] MEDS: Levothyroxine 0.025 Mg Tab PO SCH (06:52)
[2017-10-11] MEDS: Lactobacillus Rhamnosus GG 15 Billion CFU CAP.SPRINK PO SCH (08:12)
[2017-10-11 08:31] LABS: CHOLESTEROL 159 mg/dL (<200); HDL -HIGH DENSITY LIPOPROTEIN 60 mg/dL (23-92); TRIGLYCERIDES 75 mg/dL (<150)
--- NOTE | 2017-10-11 12:27 | Internal Medicine Prog Note ---
Internal Medicine Subjective - Subjective Service Date: 10/11/17 Patient is:: awake Per staff patient has:: tolerating meds Internal Medicine Objective - Results Result Diagrams: 10/07/17 17:34 10/07/17 17:34 Recent Labs: Laboratory Last Values WBC 6.2 Th/cmm (4.8-10.8) 10/07/17 17:34 RBC 5.13 Mil/cmm (4.30-5.70) 10/07/17 17:34 Hgb 15.4 gm/dL (12-16) 10/07/17 17:34 Hct 46.8 % (41.0-60) 10/07/17 17:34 MCV 91.1 fl (80-99) 10/07/17 17:34 MCH 30.0 pg (26.0-30.0) 10/07/17 17:34 MCHC Differential 33.0 pg (28.0-36.0) 10/07/17 17:34 RDW 12.5 % (11.5-20.0) 10/07/17 17:34 Plt Count 184 Th/cmm (150-400) 10/07/17 17:34 MPV 8.9 fl 10/07/17 17:34 Neutrophils % 68.9 % (40.0-80.0) 10/07/17 17:34 Lymphocytes % 24.1 % (20.0-50.0) 10/07/17 17:34 Monocytes % 5.5 % (2.0-10.0) 10/07/17 17:34 Eosinophils % 0.6 % (0.0-5.0) 10/07/17 17:34 Basophils % 0.9 % (0.0-2.0) 10/07/17 17:34 PT 10.2 SECONDS (9.5-11.5) 10/07/17 17:34 INR 0.98 (0.5-1.4) 10/07/17 17:34 Sodium 131 mEq/L (136-145) L 10/07/17 17:34 Potassium 4.6 mEq/L (3.5-5.1) 10/07/17 17:34 Chloride 99 mEq/L (98-107) 10/07/17 17:34 Carbon Dioxide 21.8 mEq/L (21.0-31.0) 10/07/17 17:34 Anion Gap 14.8 (7.0-16.0) 10/07/17 17:34 BUN 21 mg/dL (7-25) 10/07/17 17:34 Creatinine 0.7 mg/dL (0.7-1.3) 10/07/17 17:34 Est GFR ( Amer) > 60.0 ml/min (>90) 10/07/17 17:34 Est GFR (Non-Af Amer) > 60.0 ml/min 10/07/17 17:34 BUN/Creatinine Ratio 30.0 10/07/17 17:34 Glucose 345 mg/dL (70-105) H 10/07/17 17:34 POC Glucose 166 MG/DL (70 - 105) H 10/11/17 06:37 Hemoglobin A1c % 9.5 % (4.0-6.0) H 10/07/17 17:24 Calcium 9.6 mg/dL (8.6-10.3) 10/07/17 17:34 Total Bilirubin 0.8 mg/dL (0.3-1.0) 10/07/17 17:34 AST 16 U/L (13-39) 10/07/17 17:34 ALT 10 U/L (7-52) 10/07/17 17:34 Alkaline Phosphatase 59 U/L (34-104) 10/07/17 17:34 Total Protein 6.9 gm/dL (6.0-8.3) 10/07/17 17:34 Albumin 4.1 gm/dL (4.2-5.5) L 10/07/17 17:34 Globulin 2.8 gm/dL 10/07/17 17:34 Albumin/Globulin Ratio 1.5 (1.0-1.8) 10/07/17 17:34 Triglycerides 75 mg/dL (<150) 10/11/17 07:43 Cholesterol 159 mg/dL (<200) 10/11/17 07:43 LDL Cholesterol Direct 89 mg/dL (75-193) 10/11/17 07:43 HDL Cholesterol 60 mg/dL (23-92) 10/11/17 07:43 Urine Source CLEAN C 10/07/17 17:51 Urine Color YELLOW 10/07/17 17:51 Urine Clarity HAZY (CLEAR) 10/07/17 17:51 Urine pH 5.5 (4.6 - 8.0) 10/07/17 17:51 Ur Specific [place] 1.020 (1.005-1.030) 10/07/17 17:51 Urine Protein TRACE mg/dL (NEGATIVE) 10/07/17 17:51 Urine Glucose (UA) >=1000 mg/dL (NEGATIVE) H 10/07/17 17:51 Urine Ketones NEGATIVE mg/dL (NEGATIVE) 10/07/17 17:51 Urine Blood NEGATIVE (NEGATIVE) 10/07/17 17:51 Urine Nitrate POSITIVE (NEGATIVE) H 10/07/17 17:51 Urine Bilirubin NEGATIVE (NEGATIVE) 10/07/17 17:51 Urine Urobilinogen 0.2 E.U./dL (0.2 - 1.0) 10/07/17 17:51 Ur Leukocyte Esterase NEGATIVE (NEGATIVE) 10/07/17 17:51 Urine RBC 0-2 /hpf (0-5) H 10/07/17 17:51 Urine WBC 6-10 /hpf (0-5) 10/07/17 17:51 Ur Epithelial Cells OCCASIONAL /lpf (FEW) 10/07/17 17:51 Urine Bacteria 3+ /hpf (NONE SEEN) H 10/07/17 17:51 Salicylates < 25.0 mg/L (30.0-100.0) L 10/07/17 17:34 Urine Opiates Screen NEGATIVE (NEGATIVE) 10/07/17 17:51 Urine Methadone Screen NEGATIVE (NEGATIVE) 10/07/17 17:51 Acetaminophen < 10.0 ug/mL (10.0-30.0) L 10/07/17 17:34 Ur Barbiturates Screen NEGATIVE (NEGATIVE) 10/07/17 17:51 Ur Tricyclics Screen NEGATIVE (NEGATIVE) 10/07/17 17:51 Ur Phencyclidine Scrn NEGATIVE (NEGATIVE) 10/07/17 17:51 Amphetamines Screen NEGATIVE (NEGATIVE) 10/07/17 17:51 U Methamphetamines Scrn NEGATIVE (NEGATIVE) 10/07/17 17:51 U Benzodiazepines Scrn NEGATIVE (NEGATIVE) 10/07/17 17:51 U Cocaine Metab Screen NEGATIVE (NEGATIVE) 10/07/17 17:51 U Cannabinoids Screen NEGATIVE (NEGATIVE) 10/07/17 17:51 Ethyl Alcohol < 10 mg/dL (0-10) 10/07/17 17:34 - Physical Exam Vitals and I&O: Vital Signs Temp 97.9 F 10/11/17 06:49 Pulse 70 10/11/17 06:49 Resp 20 10/11/17 06:49 BP 109/67 10/11/17 06:49 Pulse Ox 96 10/11/17 06:49 Intake & Output 10/10/17 10/11/17 10/11/17 18:59 06:59 18:59 Intake Total 120 Balance 120 Intake: Oral 120 Other: # Voids 3 Active Medications: Current Medications Acetaminophen (Tylenol) 650 mg PO Q4HR PRN PRN Reason: Mild Pain / Temp above 100 Stop: 12/06/17 21:40 Atorvastatin Calcium (Lipitor) 10 mg PO HS [facility]; Protocol Stop: 12/07/17 20:59 Last Admin: 10/10/17 21:04 Dose: 10 mg Glyburide (Diabeta) 5 mg PO BIDAC [facility] Stop: 12/07/17 16:29 Last Admin: 10/11/17 06:52 Dose: 5 mg Hydroxyzine Pamoate (Vistaril) 50 mg PO BID [facility]; Protocol Stop: 12/07/17 08:59 Last Admin: 10/11/17 08:12 Dose: 50 mg Insulin Aspart (Novolog) 0 units SUBQ ACHS [facility]; Protocol Stop: 12/07/17 16:29 Last Admin: 10/11/17 12:04 Dose: 4 units Lactobacillus Rhamnosus (Culturelle 15b) 1 each PO DAILY [facility] Stop: 12/09/17 13:59 Last Admin: 10/11/17 08:12 Dose: 1 each Levofloxacin (Levaquin) 500 mg PO DAILY [facility] Stop: 12/08/17 08:59 Last Admin: 10/11/17 08:12 Dose: 500 mg Levothyroxine Sodium (Synthroid) 0.025 mg PO QDAC [facility] Stop: 12/08/17 07:29 Last Admin: 10/11/17 06:52 Dose: 0.025 mg Lorazepam (Ativan) 0.5 mg PO Q4HR PRN; Protocol PRN Reason: Anxiety Stop: 11/06/17 21:40 Last Admin: 10/08/17 09:11 Dose: 0.5 mg Metformin HCl (Glucophage) 850 mg PO TID [facility] Stop: 12/07/17 13:59 Last Admin: 10/11/17 08:11 Dose: 850 mg Miscellaneous (Probiotic Screen) 1 ea MC PRN PRN PRN Reason: PROTOCOL Stop: 12/09/17 11:03 Mupirocin (Bactroban Oint) 1 appl NS BID [facility] Stop: 10/19/17 16:59 Last Admin: 10/11/17 08:11 Dose: 1 appl Olanzapine (Zyprexa) 15 mg PO HS [facility]; Protocol Stop: 12/07/17 20:59 Last Admin: 10/10/17 21:04 Dose: 15 mg Trazodone HCl (Desyrel) 50 mg PO HS [facility]; Protocol Stop: 12/07/17 20:59 Last Admin: 10/10/17 21:05 Dose: 50 mg Zolpidem Tartrate (Ambien) 5 mg PO HS PRN PRN Reason: Insomnia Stop: 12/06/17 21:40 Last Admin: 10/10/17 21:05 Dose: 5 mg General: alert HEENT: NC/AT, PERRLA Neck: Supple Lungs: CTAB Cardiovascular: RRR, Normal S1, Normal S2, without murmur Extremities: excoriation Neurological: alert Internal Medicine Assmt/Plan - Assessment Assessment: acute uti with e.coli dm dyslipidemia hypothyroidism - Plan Plan: continue with levaquin monitor bp continue current plan of care Nutritional Asmnt/Malnutr-PDOC - Dietary Evaluation Malnutrition Findings (Please click <Entered> for more info): Nutritional Asmnt/Malnutrition Start: 10/08/17 14: 31 Text: Status: Complete Freq: Protocol: Document 10/08/17 14:31 LCHENG (Rec: 10/08/17 15:05 LCHENG [email or web address]) Nutritional Asmnt/Malnutrition Patient General Information Nutritional Screening High Risk Diagnosis psychosis Pertinent Medical Hx/Surgical Hx DM, dyslipidemia, thyroid disorder, right knee fusion, gait abn, schizophrenia Subjective Information Pt seen on wheelchair waiting for ciggratte. Pt stated he did not like the lunch, he only likes burger and fries, mac & cheese, does not like any fruits or veggies. Glucose 345 at admission noted. Not able to provide diabetic education d/t pt mental status . Per EMR, pt consumed 100% of breakfast today. Current Diet [facility] Pertinent Medications diabeta, novolog, synthroid, glucophage Pertinent Labs 10/07 Na 131, glucose 345, POC 239 Nutritional Hx/Data Height 5 ft 4 in Height (Calculated Centimeters) 162.6 Current Weight (lbs) 156 lb Weight (Calculated Kilograms) 70.8 Weight (Calculated Grams) 16490.4 [place] Body Weight 130 Body Mass Index (BMI) 26.7 Weight Status Overweight GI Symptoms GI Symptoms None Last BM not indicated Difficult in: None Food Allergies Yes: seafood Skin Integrity/Comment: intact Current %PO Good (75-100%) Estimated Nutritional Goals BEE in Kcals: Using Current wt Calories/Kcals/Kg 23-27 Kcals Calculated 9534-9075 Protein: Using Current wt Protein g/k Protein Calculated 79 Fluid: ml 1817-2133ml (1ml/kcal) Nutritional Problem 1. Problem Problem altered nutrition related labs Etiology hx of DM Signs/Symptoms: glucose 345, POC 239 Malnutrition Alert Is there a minimum of two criteria No selected? Query Text:Check all the applicable criteria. A minimum of two criteria are recommended for diagnosis of either severe or non-severe malnutrition. Malnutrition Related to Morbid Obesity Malnutrition related to morbid obesity No Intervention/Recommendation Comments 1. Continue with [facility] 60gm diet as ordered. 2. Monitor PO intake, wt, labs and skin integrity 3. F/U as moderate risk in 3-5 days, 10/11-10/13, PO check Expected Outcomes/Goals Expected Outcomes/Goals 1. PO intake to meet at least 75% of nutritional needs. 2. Wt stability, skin to remain intact, labs to approach WNL.
[2017-10-11] MEDS: Atorvastatin Calcium 10 MG TAB PO SCH (21:35)
--- NOTE | 2017-10-11 21:42 | Progress Notes ---
DATE: 10/11/2017 Case was discussed with staff of the patient, reviewed records. The patient continues to be irritable, can take care of his ADLs on his own. Continues to have poor insight. Continues to be easily agitated, unpredictable, impulsive, needing redirection, looking disheveled. He has a high blood sugar. No other lab work is available and have a blood pressure kept going down from 272 on the 10/09/2017 to 166 today. No side effects with the medication, no sedation, no nausea, no extrapyramidal symptoms. We will continue the patient in group therapy, milieu therapy, and adjust the medication as needed. JOB# [id number]
[2017-10-12] MEDS: Levothyroxine 0.025 Mg Tab PO SCH (06:39)
[2017-10-12] MEDS: INSULIN ASPART, RECOMBINANT 100 UNITS/ML SUBQ SCH ×4 (07:00→20:57)
[2017-10-12] MEDS: Lactobacillus Rhamnosus GG 15 Billion CFU CAP.SPRINK PO SCH (08:50)
--- NOTE | 2017-10-12 13:09 | Internal Medicine Prog Note ---
Internal Medicine Subjective - Subjective Service Date: 10/12/17 Patient is:: awake Per staff patient has:: tolerating meds Internal Medicine Objective - Results Result Diagrams: 10/07/17 17:34 10/07/17 17:34 Recent Labs: Laboratory Last Values WBC 6.2 Th/cmm (4.8-10.8) 10/07/17 17:34 RBC 5.13 Mil/cmm (4.30-5.70) 10/07/17 17:34 Hgb 15.4 gm/dL (12-16) 10/07/17 17:34 Hct 46.8 % (41.0-60) 10/07/17 17:34 MCV 91.1 fl (80-99) 10/07/17 17:34 MCH 30.0 pg (26.0-30.0) 10/07/17 17:34 MCHC Differential 33.0 pg (28.0-36.0) 10/07/17 17:34 RDW 12.5 % (11.5-20.0) 10/07/17 17:34 Plt Count 184 Th/cmm (150-400) 10/07/17 17:34 MPV 8.9 fl 10/07/17 17:34 Neutrophils % 68.9 % (40.0-80.0) 10/07/17 17:34 Lymphocytes % 24.1 % (20.0-50.0) 10/07/17 17:34 Monocytes % 5.5 % (2.0-10.0) 10/07/17 17:34 Eosinophils % 0.6 % (0.0-5.0) 10/07/17 17:34 Basophils % 0.9 % (0.0-2.0) 10/07/17 17:34 PT 10.2 SECONDS (9.5-11.5) 10/07/17 17:34 INR 0.98 (0.5-1.4) 10/07/17 17:34 Sodium 131 mEq/L (136-145) L 10/07/17 17:34 Potassium 4.6 mEq/L (3.5-5.1) 10/07/17 17:34 Chloride 99 mEq/L (98-107) 10/07/17 17:34 Carbon Dioxide 21.8 mEq/L (21.0-31.0) 10/07/17 17:34 Anion Gap 14.8 (7.0-16.0) 10/07/17 17:34 BUN 21 mg/dL (7-25) 10/07/17 17:34 Creatinine 0.7 mg/dL (0.7-1.3) 10/07/17 17:34 Est GFR ( Amer) > 60.0 ml/min (>90) 10/07/17 17:34 Est GFR (Non-Af Amer) > 60.0 ml/min 10/07/17 17:34 BUN/Creatinine Ratio 30.0 10/07/17 17:34 Glucose 345 mg/dL (70-105) H 10/07/17 17:34 POC Glucose 228 MG/DL (70 - 105) H 10/11/17 21:05 Hemoglobin A1c % 9.5 % (4.0-6.0) H 10/07/17 17:24 Calcium 9.6 mg/dL (8.6-10.3) 10/07/17 17:34 Total Bilirubin 0.8 mg/dL (0.3-1.0) 10/07/17 17:34 AST 16 U/L (13-39) 10/07/17 17:34 ALT 10 U/L (7-52) 10/07/17 17:34 Alkaline Phosphatase 59 U/L (34-104) 10/07/17 17:34 Total Protein 6.9 gm/dL (6.0-8.3) 10/07/17 17:34 Albumin 4.1 gm/dL (4.2-5.5) L 10/07/17 17:34 Globulin 2.8 gm/dL 10/07/17 17:34 Albumin/Globulin Ratio 1.5 (1.0-1.8) 10/07/17 17:34 Triglycerides 75 mg/dL (<150) 10/11/17 07:43 Cholesterol 159 mg/dL (<200) 10/11/17 07:43 LDL Cholesterol Direct 89 mg/dL (75-193) 10/11/17 07:43 HDL Cholesterol 60 mg/dL (23-92) 10/11/17 07:43 Urine Source CLEAN C 10/07/17 17:51 Urine Color YELLOW 10/07/17 17:51 Urine Clarity HAZY (CLEAR) 10/07/17 17:51 Urine pH 5.5 (4.6 - 8.0) 10/07/17 17:51 Ur Specific [place] 1.020 (1.005-1.030) 10/07/17 17:51 Urine Protein TRACE mg/dL (NEGATIVE) 10/07/17 17:51 Urine Glucose (UA) >=1000 mg/dL (NEGATIVE) H 10/07/17 17:51 Urine Ketones NEGATIVE mg/dL (NEGATIVE) 10/07/17 17:51 Urine Blood NEGATIVE (NEGATIVE) 10/07/17 17:51 Urine Nitrate POSITIVE (NEGATIVE) H 10/07/17 17:51 Urine Bilirubin NEGATIVE (NEGATIVE) 10/07/17 17:51 Urine Urobilinogen 0.2 E.U./dL (0.2 - 1.0) 10/07/17 17:51 Ur Leukocyte Esterase NEGATIVE (NEGATIVE) 10/07/17 17:51 Urine RBC 0-2 /hpf (0-5) H 10/07/17 17:51 Urine WBC 6-10 /hpf (0-5) 10/07/17 17:51 Ur Epithelial Cells OCCASIONAL /lpf (FEW) 10/07/17 17:51 Urine Bacteria 3+ /hpf (NONE SEEN) H 10/07/17 17:51 Salicylates < 25.0 mg/L (30.0-100.0) L 10/07/17 17:34 Urine Opiates Screen NEGATIVE (NEGATIVE) 10/07/17 17:51 Urine Methadone Screen NEGATIVE (NEGATIVE) 10/07/17 17:51 Acetaminophen < 10.0 ug/mL (10.0-30.0) L 10/07/17 17:34 Ur Barbiturates Screen NEGATIVE (NEGATIVE) 10/07/17 17:51 Ur Tricyclics Screen NEGATIVE (NEGATIVE) 10/07/17 17:51 Ur Phencyclidine Scrn NEGATIVE (NEGATIVE) 10/07/17 17:51 Amphetamines Screen NEGATIVE (NEGATIVE) 10/07/17 17:51 U Methamphetamines Scrn NEGATIVE (NEGATIVE) 10/07/17 17:51 U Benzodiazepines Scrn NEGATIVE (NEGATIVE) 10/07/17 17:51 U Cocaine Metab Screen NEGATIVE (NEGATIVE) 10/07/17 17:51 U Cannabinoids Screen NEGATIVE (NEGATIVE) 10/07/17 17:51 Ethyl Alcohol < 10 mg/dL (0-10) 10/07/17 17:34 - Physical Exam Vitals and I&O: Vital Signs Temp 97.2 F 10/11/17 14:00 Pulse 76 10/11/17 14:00 Resp 18 10/11/17 14:00 BP 98/65 10/11/17 14:00 Pulse Ox 97 10/11/17 14:00 Intake & Output 10/11/17 10/12/17 10/12/17 18:59 06:59 18:59 Intake Total 1100 Balance 1100 Intake: Oral 1100 Other: # Voids 4 # Bowel Movements 1 Active Medications: Current Medications Acetaminophen (Tylenol) 650 mg PO Q4HR PRN PRN Reason: Mild Pain / Temp above 100 Stop: 12/06/17 21:40 Atorvastatin Calcium (Lipitor) 10 mg PO HS [facility]; Protocol Stop: 12/07/17 20:59 Last Admin: 10/11/17 21:35 Dose: 10 mg Glyburide (Diabeta) 5 mg PO BIDAC [facility] Stop: 12/07/17 16:29 Last Admin: 10/12/17 06:39 Dose: 5 mg Hydroxyzine Pamoate (Vistaril) 50 mg PO BID [facility]; Protocol Stop: 12/07/17 08:59 Last Admin: 10/12/17 08:49 Dose: 50 mg Insulin Aspart (Novolog) 0 units SUBQ ACHS [facility]; Protocol Stop: 12/07/17 16:29 Last Admin: 10/12/17 07:00 Dose: 4 units Lactobacillus Rhamnosus (Culturelle 15b) 1 each PO DAILY [facility] Stop: 12/09/17 13:59 Last Admin: 10/12/17 08:50 Dose: 1 each Levofloxacin (Levaquin) 500 mg PO DAILY [facility] Stop: 12/08/17 08:59 Last Admin: 10/12/17 08:50 Dose: 500 mg Levothyroxine Sodium (Synthroid) 0.025 mg PO QDAC [facility] Stop: 12/08/17 07:29 Last Admin: 10/12/17 06:39 Dose: 0.025 mg Lorazepam (Ativan) 0.5 mg PO Q4HR PRN; Protocol PRN Reason: Anxiety Stop: 11/06/17 21:40 Last Admin: 10/12/17 00:12 Dose: 0.5 mg Metformin HCl (Glucophage) 850 mg PO TID GABRIELLE Stop: 12/07/17 13:59 Last Admin: 10/12/17 08:50 Dose: 850 mg Miscellaneous (Probiotic Screen) 1 ea MC PRN PRN PRN Reason: PROTOCOL Stop: 12/09/17 11:03 Mupirocin (Bactroban Oint) 1 appl NS BID GABRIELLE Stop: 10/19/17 16:59 Last Admin: 10/12/17 08:49 Dose: 1 appl Olanzapine (Zyprexa) 15 mg PO HS G[facility]ELLE; Protocol Stop: 12/07/17 20:59 Last Admin: 10/11/17 21:35 Dose: 15 mg Trazodone HCl (Desyrel) 50 mg PO HS G[facility]IRELLE; Protocol Stop: 12/07/17 20:59 Last Admin: 10/11/17 21:36 Dose: 50 mg Zolpidem Tartrate (Ambien) 5 mg PO HS PRN PRN Reason: Insomnia Stop: 12/06/17 21:40 Last Admin: 10/11/17 21:35 Dose: 5 mg General: alert HEENT: NC/AT, PERRLA Neck: Supple Lungs: CTAB Cardiovascular: RRR, Normal S1, Normal S2, without murmur Extremities: excoriation Neurological: alert Internal Medicine Assmt/Plan - Assessment Assessment: acute uti with e.coli dm dyslipidemia hypothyroidism - Plan Plan: continue with levaquin monitor bp continue current plan of care Nutritional Asmnt/Malnutr-PDOC - Dietary Evaluation Malnutrition Findings (Please click <Entered> for more info): Nutritional Asmnt/Malnutrition Start: 10/08/17 14: 31 Text: Status: Complete Freq: Protocol: Document 10/08/17 14:31 LCHENG (Rec: 10/08/17 15:05 LCHENG [email or web address]) Nutritional Asmnt/Malnutrition Patient General Information Nutritional Screening High Risk Diagnosis psychosis Pertinent Medical Hx/Surgical Hx DM, dyslipidemia, thyroid disorder, right knee fusion, gait abn, schizophrenia Subjective Information Pt seen on wheelchair waiting for ciggratte. Pt stated he did not like the lunch, he only likes burger and fries, mac & cheese, does not like any fruits or veggies. Glucose 345 at admission noted. Not able to provide diabetic education d/t pt mental status . Per EMR, pt consumed 100% of breakfast today. Current Diet Order/ Nutrition Support CCHO-60gm Pertinent Medications diabeta, novolog, synthroid, glucophage Pertinent Labs 10/07 Na 131, glucose 345, POC 239 Nutritional Hx/Data Height 5 ft 4 in Height (Calculated Centimeters) 162.6 Current Weight (lbs) 156 lb Weight (Calculated Kilograms) 70.8 Weight (Calculated Grams) 25750.4 [place] Body Weight 130 Body Mass Index (BMI) 26.7 Weight Status Overweight GI Symptoms GI Symptoms None Last BM not indicated Difficult in: None Food Allergies Yes: seafood Skin Integrity/Comment: intact Current %PO Good (75-100%) Estimated Nutritional Goals BEE in Kcals: Using Current wt Calories/Kcals/Kg 23-27 Kcals Calculated 1757-9282 Protein: Using Current wt Protein g/k Protein Calculated 79 Fluid: ml 1817-2133ml (1ml/kcal) Nutritional Problem 1. Problem Problem altered nutrition related labs Etiology hx of DM Signs/Symptoms: glucose 345, POC 239 Malnutrition Alert Is there a minimum of two criteria No selected? Query Text:Check all the applicable criteria. A minimum of two criteria are recommended for diagnosis of either severe or non-severe malnutrition. Malnutrition Related to Morbid Obesity Malnutrition related to morbid obesity No Intervention/Recommendation Comments 1. Continue with [facility] 60gm diet as ordered. 2. Monitor PO intake, wt, labs and skin integrity 3. F/U as moderate risk in 3-5 days, 10/11-10/13, PO check Expected Outcomes/Goals Expected Outcomes/Goals 1. PO intake to meet at least 75% of nutritional needs. 2. Wt stability, skin to remain intact, labs to approach WNL.
[2017-10-12] MEDS: Atorvastatin Calcium 10 MG TAB PO SCH (20:31)
--- NOTE | 2017-10-12 23:18 | Progress Notes ---
DATE: 10/12/2017 SUBJECTIVE: Case was discussed with staff of the patient, reviewed records. The patient continues to have episodes of agitation, irritability, unpredictable, impulsive, internally preoccupied. Continues to need redirection. Sleeping better, eating better. No side effects of the medication, no sedation, no nausea, no extrapyramidal symptoms and we will consider patient in group therapy, milieu therapy, and adjust medications as needed. [facility]# [id number]
[2017-10-13] MEDS: Levothyroxine 0.025 Mg Tab PO SCH (06:44)
[2017-10-13] MEDS: INSULIN ASPART, RECOMBINANT 100 UNITS/ML SUBQ SCH ×4 (06:44→21:19)
--- NOTE | 2017-10-13 06:54 | Progress Notes ---
DATE: 10/13/2017 SUBJECTIVE: A 62-year-old male here because of agitation, irritability and uncooperative with staff. On [id number], the patient is minimally interactive. Dr. Ferrari noting over the past few days, ongoing episodes of agitation, irritability, impulsivity, internally preoccupied, needing redirection. Staff noting that he slept fairly well, cooperative, fair orientation and labile. ASSESSMENT: The patient remains labile, easily upset, agitated, anxious, impulsive with bouts of confusion, essentially refusing to speak with me this morning. PLAN: We will continue to monitor. Medications were reviewed. JOB# [id number]
[2017-10-13] MEDS: Lactobacillus Rhamnosus GG 15 Billion CFU CAP.SPRINK PO SCH (08:26)
--- NOTE | 2017-10-13 10:28 | Internal Medicine Prog Note ---
Internal Medicine Subjective - Subjective Service Date: 10/13/17 Patient is:: awake Per staff patient has:: tolerating meds Internal Medicine Objective - Results Result Diagrams: 10/07/17 17:34 10/07/17 17:34 Recent Labs: Laboratory Last Values WBC 6.2 Th/cmm (4.8-10.8) 10/07/17 17:34 RBC 5.13 Mil/cmm (4.30-5.70) 10/07/17 17:34 Hgb 15.4 gm/dL (12-16) 10/07/17 17:34 Hct 46.8 % (41.0-60) 10/07/17 17:34 MCV 91.1 fl (80-99) 10/07/17 17:34 MCH 30.0 pg (26.0-30.0) 10/07/17 17:34 MCHC Differential 33.0 pg (28.0-36.0) 10/07/17 17:34 RDW 12.5 % (11.5-20.0) 10/07/17 17:34 Plt Count 184 Th/cmm (150-400) 10/07/17 17:34 MPV 8.9 fl 10/07/17 17:34 Neutrophils % 68.9 % (40.0-80.0) 10/07/17 17:34 Lymphocytes % 24.1 % (20.0-50.0) 10/07/17 17:34 Monocytes % 5.5 % (2.0-10.0) 10/07/17 17:34 Eosinophils % 0.6 % (0.0-5.0) 10/07/17 17:34 Basophils % 0.9 % (0.0-2.0) 10/07/17 17:34 PT 10.2 SECONDS (9.5-11.5) 10/07/17 17:34 INR 0.98 (0.5-1.4) 10/07/17 17:34 Sodium 131 mEq/L (136-145) L 10/07/17 17:34 Potassium 4.6 mEq/L (3.5-5.1) 10/07/17 17:34 Chloride 99 mEq/L (98-107) 10/07/17 17:34 Carbon Dioxide 21.8 mEq/L (21.0-31.0) 10/07/17 17:34 Anion Gap 14.8 (7.0-16.0) 10/07/17 17:34 BUN 21 mg/dL (7-25) 10/07/17 17:34 Creatinine 0.7 mg/dL (0.7-1.3) 10/07/17 17:34 Est GFR ( Amer) > 60.0 ml/min (>90) 10/07/17 17:34 Est GFR (Non-Af Amer) > 60.0 ml/min 10/07/17 17:34 BUN/Creatinine Ratio 30.0 10/07/17 17:34 Glucose 345 mg/dL (70-105) H 10/07/17 17:34 POC Glucose 203 MG/DL (70 - 105) H 10/12/17 19:54 Hemoglobin A1c % 9.5 % (4.0-6.0) H 10/07/17 17:24 Calcium 9.6 mg/dL (8.6-10.3) 10/07/17 17:34 Total Bilirubin 0.8 mg/dL (0.3-1.0) 10/07/17 17:34 AST 16 U/L (13-39) 10/07/17 17:34 ALT 10 U/L (7-52) 10/07/17 17:34 Alkaline Phosphatase 59 U/L (34-104) 10/07/17 17:34 Total Protein 6.9 gm/dL (6.0-8.3) 10/07/17 17:34 Albumin 4.1 gm/dL (4.2-5.5) L 10/07/17 17:34 Globulin 2.8 gm/dL 10/07/17 17:34 Albumin/Globulin Ratio 1.5 (1.0-1.8) 10/07/17 17:34 Triglycerides 75 mg/dL (<150) 10/11/17 07:43 Cholesterol 159 mg/dL (<200) 10/11/17 07:43 LDL Cholesterol Direct 89 mg/dL (75-193) 10/11/17 07:43 HDL Cholesterol 60 mg/dL (23-92) 10/11/17 07:43 Urine Source CLEAN C 10/07/17 17:51 Urine Color YELLOW 10/07/17 17:51 Urine Clarity HAZY (CLEAR) 10/07/17 17:51 Urine pH 5.5 (4.6 - 8.0) 10/07/17 17:51 Ur Specific [place] 1.020 (1.005-1.030) 10/07/17 17:51 Urine Protein TRACE mg/dL (NEGATIVE) 10/07/17 17:51 Urine Glucose (UA) >=1000 mg/dL (NEGATIVE) H 10/07/17 17:51 Urine Ketones NEGATIVE mg/dL (NEGATIVE) 10/07/17 17:51 Urine Blood NEGATIVE (NEGATIVE) 10/07/17 17:51 Urine Nitrate POSITIVE (NEGATIVE) H 10/07/17 17:51 Urine Bilirubin NEGATIVE (NEGATIVE) 10/07/17 17:51 Urine Urobilinogen 0.2 E.U./dL (0.2 - 1.0) 10/07/17 17:51 Ur Leukocyte Esterase NEGATIVE (NEGATIVE) 10/07/17 17:51 Urine RBC 0-2 /hpf (0-5) H 10/07/17 17:51 Urine WBC 6-10 /hpf (0-5) 10/07/17 17:51 Ur Epithelial Cells OCCASIONAL /lpf (FEW) 10/07/17 17:51 Urine Bacteria 3+ /hpf (NONE SEEN) H 10/07/17 17:51 Salicylates < 25.0 mg/L (30.0-100.0) L 10/07/17 17:34 Urine Opiates Screen NEGATIVE (NEGATIVE) 10/07/17 17:51 Urine Methadone Screen NEGATIVE (NEGATIVE) 10/07/17 17:51 Acetaminophen < 10.0 ug/mL (10.0-30.0) L 10/07/17 17:34 Ur Barbiturates Screen NEGATIVE (NEGATIVE) 10/07/17 17:51 Ur Tricyclics Screen NEGATIVE (NEGATIVE) 10/07/17 17:51 Ur Phencyclidine Scrn NEGATIVE (NEGATIVE) 10/07/17 17:51 Amphetamines Screen NEGATIVE (NEGATIVE) 10/07/17 17:51 U Methamphetamines Scrn NEGATIVE (NEGATIVE) 10/07/17 17:51 U Benzodiazepines Scrn NEGATIVE (NEGATIVE) 10/07/17 17:51 U Cocaine Metab Screen NEGATIVE (NEGATIVE) 10/07/17 17:51 U Cannabinoids Screen NEGATIVE (NEGATIVE) 10/07/17 17:51 Ethyl Alcohol < 10 mg/dL (0-10) 10/07/17 17:34 - Physical Exam Vitals and I&O: Vital Signs Temp 0 F 10/13/17 06:05 Pulse 80 10/12/17 20:40 Resp 18 10/12/17 20:40 BP 100/57 10/12/17 20:40 Pulse Ox 96 10/12/17 20:40 Intake & Output 10/12/17 10/13/17 10/13/17 18:59 06:59 18:59 Intake Total 1200 240 Balance 1200 240 Intake: Oral 1200 240 Other: # Voids 3 # Bowel Movements 1 0 Active Medications: Current Medications Acetaminophen (Tylenol) 650 mg PO Q4HR PRN PRN Reason: Mild Pain / Temp above 100 Stop: 12/06/17 21:40 Atorvastatin Calcium (Lipitor) 10 mg PO HS COUNTS INCLUDE 234 BEDS AT THE [facility]; Protocol Stop: 12/07/17 20:59 Last Admin: 10/12/17 20:31 Dose: 10 mg Glyburide (Diabeta) 5 mg PO BIDAC COUNTS INCLUDE 234 BEDS AT THE [facility] Stop: 12/07/17 16:29 Last Admin: 10/13/17 06:44 Dose: 5 mg Hydroxyzine Pamoate (Vistaril) 50 mg PO BID COUNTS INCLUDE 234 BEDS AT THE [facility]; Protocol Stop: 12/07/17 08:59 Last Admin: 10/13/17 08:26 Dose: 50 mg Insulin Aspart (Novolog) 0 units SUBQ ACHS COUNTS INCLUDE 234 BEDS AT THE [facility]; Protocol Stop: 12/07/17 16:29 Last Admin: 10/13/17 06:44 Dose: 2 units Lactobacillus Rhamnosus (Culturelle 15b) 1 each PO DAILY COUNTS INCLUDE 234 BEDS AT [facility] Stop: 12/09/17 13:59 Last Admin: 10/13/17 08:26 Dose: 1 each Levofloxacin (Levaquin) 500 mg PO DAILY COUNTS INCLUDE 234 BEDS AT [facility] Stop: 12/08/17 08:59 Last Admin: 10/13/17 08:26 Dose: 500 mg Levothyroxine Sodium (Synthroid) 0.025 mg PO QDAC COUNTS INCLUDE 234 BEDS AT THE [facility] Stop: 12/08/17 07:29 Last Admin: 10/13/17 06:44 Dose: 0.025 mg Lorazepam (Ativan) 0.5 mg PO Q4HR PRN; Protocol PRN Reason: Anxiety Stop: 11/06/17 21:40 Last Admin: 10/12/17 00:12 Dose: 0.5 mg Metformin HCl (Glucophage) 850 mg PO TID GABRIELLE Stop: 12/12/17 11:59 Miscellaneous (Probiotic Screen) 1 ea MC PRN PRN PRN Reason: PROTOCOL Stop: 12/09/17 11:03 Mupirocin (Bactroban Oint) 1 appl NS BID GABRIELLE Stop: 10/19/17 16:59 Last Admin: 10/13/17 08:25 Dose: 1 appl Olanzapine (Zyprexa) 15 mg PO HS GABRIELLE; Protocol Stop: 12/07/17 20:59 Last Admin: 10/12/17 20:30 Dose: 15 mg Trazodone HCl (Desyrel) 50 mg PO HS GABRIELLE; Protocol Stop: 12/07/17 20:59 Last Admin: 10/12/17 20:30 Dose: 50 mg Zolpidem Tartrate (Ambien) 5 mg PO HS PRN PRN Reason: Insomnia Stop: 12/06/17 21:40 Last Admin: 10/12/17 20:31 Dose: 5 mg General: alert HEENT: NC/AT, PERRLA Neck: Supple Lungs: CTAB Cardiovascular: RRR, Normal S1, Normal S2, without murmur Extremities: excoriation Neurological: alert Internal Medicine Assmt/Plan - Assessment Assessment: acute uti with e.coli dm dyslipidemia hypothyroidism - Plan Plan: continue with levaquin monitor bp continue current plan of care Nutritional Asmnt/Malnutr-PDOC - Dietary Evaluation Malnutrition Findings (Please click <Entered> for more info): Nutritional Asmnt/Malnutrition Start: 10/08/17 14: 31 Text: Status: Complete Freq: Protocol: Document 10/08/17 14:31 [email or web address] (Rec: 10/08/17 15:05 [email or web address] [email or web address]) Nutritional Asmnt/Malnutrition Patient General Information Nutritional Screening High Risk Diagnosis psychosis Pertinent Medical Hx/Surgical Hx DM, dyslipidemia, thyroid disorder, right knee fusion, gait abn, schizophrenia Subjective Information Pt seen on wheelchair waiting for ciggratte. Pt stated he did not like the lunch, he only likes burger and fries, mac & cheese, does not like any fruits or veggies. Glucose 345 at admission noted. Not able to provide diabetic education d/t pt mental status . Per EMR, pt consumed 100% of breakfast today. Current Diet Order/ [facility] Pertinent Medications diabeta, novolog, synthroid, glucophage Pertinent Labs 10/07 Na 131, glucose 345, POC 239 Nutritional Hx/Data Height 5 ft 4 in Height (Calculated Centimeters) 162.6 Current Weight (lbs) 156 lb Weight (Calculated Kilograms) 70.8 Weight (Calculated Grams) 99269.4 [place] Body Weight 130 Body Mass Index (BMI) 26.7 Weight Status Overweight GI Symptoms GI Symptoms None Last BM not indicated Difficult in: None Food Allergies Yes: seafood Skin Integrity/Comment: intact Current %PO Good (75-100%) Estimated Nutritional Goals BEE in Kcals: Using Current wt Calories/Kcals/Kg 23-27 Kcals Calculated 6257-6097 Protein: Using Current wt Protein g/k Protein Calculated 79 Fluid: ml 1817-2133ml (1ml/kcal) Nutritional Problem 1. Problem Problem altered nutrition related labs Etiology hx of DM Signs/Symptoms: glucose 345, POC 239 Malnutrition Alert Is there a minimum of two criteria No selected? Query Text:Check all the applicable criteria. A minimum of two criteria are recommended for diagnosis of either severe or non-severe malnutrition. Malnutrition Related to Morbid Obesity Malnutrition related to morbid obesity No Intervention/Recommendation Comments 1. Continue with [facility] 60gm diet as ordered. 2. Monitor PO intake, wt, labs and skin integrity 3. F/U as moderate risk in 3-5 days, 10/11-10/13, PO check Expected Outcomes/Goals Expected Outcomes/Goals 1. PO intake to meet at least 75% of nutritional needs. 2. Wt stability, skin to remain intact, labs to approach WNL.
[2017-10-13] MEDS: Atorvastatin Calcium 10 MG TAB PO SCH (21:16)
--- NOTE | 2017-10-14 06:34 | Progress Notes ---
DATE: SUBJECTIVE: The patient under the care of Dr. Ferrari, here because of irritation, irritability and uncooperative with staff. On [id number], the patient refusing to speak with me, I attempt to wake him up. He opens his eyes, does not talk to me. Staff noting mostly withdrawn, isolative, not very interactive, forgetful at times, seems to be responding to internal stimuli, denying hearing voices, still at times upset, agitated, concerns for ongoing paranoia and unpredictable and impulsive behaviors noted to be depressed at times, easily agitated, argumentative. Medications were noted. The patient slept fairly well last night. ASSESSMENT: The patient remains symptomatic, still requiring redirection, prompting, somewhat calmer, slept fairly well. PLAN: Continue Zyprexa given ongoing symptoms, there are safety concerns. JOB# [id number]
[2017-10-14] MEDS: Levothyroxine 0.025 Mg Tab PO SCH (07:03)
[2017-10-14] MEDS: INSULIN ASPART, RECOMBINANT 100 UNITS/ML SUBQ SCH ×4 (07:04→20:34)
[2017-10-14] MEDS: Lactobacillus Rhamnosus GG 15 Billion CFU CAP.SPRINK PO SCH (09:01)
--- NOTE | 2017-10-14 10:54 | Internal Medicine Prog Note ---
Internal Medicine Subjective - Subjective Service Date: 10/14/17 Patient seen and examined:: with staff Patient is:: awake Per staff patient has:: tolerating meds Internal Medicine Objective - Results Result Diagrams: 10/07/17 17:34 10/07/17 17:34 Recent Labs: Laboratory Last Values WBC 6.2 Th/cmm (4.8-10.8) 10/07/17 17:34 RBC 5.13 Mil/cmm (4.30-5.70) 10/07/17 17:34 Hgb 15.4 gm/dL (12-16) 10/07/17 17:34 Hct 46.8 % (41.0-60) 10/07/17 17:34 MCV 91.1 fl (80-99) 10/07/17 17:34 MCH 30.0 pg (26.0-30.0) 10/07/17 17:34 MCHC Differential 33.0 pg (28.0-36.0) 10/07/17 17:34 RDW 12.5 % (11.5-20.0) 10/07/17 17:34 Plt Count 184 Th/cmm (150-400) 10/07/17 17:34 MPV 8.9 fl 10/07/17 17:34 Neutrophils % 68.9 % (40.0-80.0) 10/07/17 17:34 Lymphocytes % 24.1 % (20.0-50.0) 10/07/17 17:34 Monocytes % 5.5 % (2.0-10.0) 10/07/17 17:34 Eosinophils % 0.6 % (0.0-5.0) 10/07/17 17:34 Basophils % 0.9 % (0.0-2.0) 10/07/17 17:34 PT 10.2 SECONDS (9.5-11.5) 10/07/17 17:34 INR 0.98 (0.5-1.4) 10/07/17 17:34 Sodium 131 mEq/L (136-145) L 10/07/17 17:34 Potassium 4.6 mEq/L (3.5-5.1) 10/07/17 17:34 Chloride 99 mEq/L (98-107) 10/07/17 17:34 Carbon Dioxide 21.8 mEq/L (21.0-31.0) 10/07/17 17:34 Anion Gap 14.8 (7.0-16.0) 10/07/17 17:34 BUN 21 mg/dL (7-25) 10/07/17 17:34 Creatinine 0.7 mg/dL (0.7-1.3) 10/07/17 17:34 Est GFR ( Amer) > 60.0 ml/min (>90) 10/07/17 17:34 Est GFR (Non-Af Amer) > 60.0 ml/min 10/07/17 17:34 BUN/Creatinine Ratio 30.0 10/07/17 17:34 Glucose 345 mg/dL (70-105) H 10/07/17 17:34 POC Glucose 178 MG/DL (70 - 105) H 10/13/17 19:59 Hemoglobin A1c % 9.5 % (4.0-6.0) H 10/07/17 17:24 Calcium 9.6 mg/dL (8.6-10.3) 10/07/17 17:34 Total Bilirubin 0.8 mg/dL (0.3-1.0) 10/07/17 17:34 AST 16 U/L (13-39) 10/07/17 17:34 ALT 10 U/L (7-52) 10/07/17 17:34 Alkaline Phosphatase 59 U/L (34-104) 10/07/17 17:34 Total Protein 6.9 gm/dL (6.0-8.3) 10/07/17 17:34 Albumin 4.1 gm/dL (4.2-5.5) L 10/07/17 17:34 Globulin 2.8 gm/dL 10/07/17 17:34 Albumin/Globulin Ratio 1.5 (1.0-1.8) 10/07/17 17:34 Triglycerides 75 mg/dL (<150) 10/11/17 07:43 Cholesterol 159 mg/dL (<200) 10/11/17 07:43 LDL Cholesterol Direct 89 mg/dL (75-193) 10/11/17 07:43 HDL Cholesterol 60 mg/dL (23-92) 10/11/17 07:43 Urine Source CLEAN C 10/07/17 17:51 Urine Color YELLOW 08/19/18 17:51 Urine Clarity HAZY (CLEAR) 10/07/17 17:51 Urine pH 5.5 (4.6 - 8.0) 10/07/17 17:51 Ur Specific [place] 1.020 (1.005-1.030) 10/07/17 17:51 Urine Protein TRACE mg/dL (NEGATIVE) 10/07/17 17:51 Urine Glucose (UA) >=1000 mg/dL (NEGATIVE) H 10/07/17 17:51 Urine Ketones NEGATIVE mg/dL (NEGATIVE) 10/07/17 17:51 Urine Blood NEGATIVE (NEGATIVE) 10/07/17 17:51 Urine Nitrate POSITIVE (NEGATIVE) H 10/07/17 17:51 Urine Bilirubin NEGATIVE (NEGATIVE) 10/07/17 17:51 Urine Urobilinogen 0.2 E.U./dL (0.2 - 1.0) 10/07/17 17:51 Ur Leukocyte Esterase NEGATIVE (NEGATIVE) 10/07/17 17:51 Urine RBC 0-2 /hpf (0-5) H 10/07/17 17:51 Urine WBC 6-10 /hpf (0-5) 10/07/17 17:51 Ur Epithelial Cells OCCASIONAL /lpf (FEW) 10/07/17 17:51 Urine Bacteria 3+ /hpf (NONE SEEN) H 10/07/17 17:51 Salicylates < 25.0 mg/L (30.0-100.0) L 10/07/17 17:34 Urine Opiates Screen NEGATIVE (NEGATIVE) 10/07/17 17:51 Urine Methadone Screen NEGATIVE (NEGATIVE) 10/07/17 17:51 Acetaminophen < 10.0 ug/mL (10.0-30.0) L 10/07/17 17:34 Ur Barbiturates Screen NEGATIVE (NEGATIVE) 10/07/17 17:51 Ur Tricyclics Screen NEGATIVE (NEGATIVE) 10/07/17 17:51 Ur Phencyclidine Scrn NEGATIVE (NEGATIVE) 10/07/17 17:51 Amphetamines Screen NEGATIVE (NEGATIVE) 10/07/17 17:51 U Methamphetamines Scrn NEGATIVE (NEGATIVE) 10/07/17 17:51 U Benzodiazepines Scrn NEGATIVE (NEGATIVE) 10/07/17 17:51 U Cocaine Metab Screen NEGATIVE (NEGATIVE) 10/07/17 17:51 U Cannabinoids Screen NEGATIVE (NEGATIVE) 10/07/17 17:51 Ethyl Alcohol < 10 mg/dL (0-10) 10/07/17 17:34 - Physical Exam Vitals and I&O: Vital Signs Temp 98.4 F 10/13/17 20:00 Pulse 59 10/13/17 20:00 Resp 19 10/13/17 20:00 BP 111/67 10/13/17 20:00 Pulse Ox 95 10/13/17 20:00 Intake & Output 10/13/17 10/14/17 10/14/17 18:59 06:59 18:59 Intake Total 900 Balance 900 Intake: Oral 900 Other: # Voids 3 # Bowel Movements 1 Active Medications: Current Medications Acetaminophen (Tylenol) 650 mg PO Q4HR PRN PRN Reason: Mild Pain / Temp above 100 Stop: 12/06/17 21:40 Atorvastatin Calcium (Lipitor) 10 mg PO HS [facility]; Protocol Stop: 12/07/17 20:59 Last Admin: 10/13/17 21:16 Dose: 10 mg Glyburide (Diabeta) 5 mg PO BIDAC [facility] Stop: 12/07/17 16:29 Last Admin: 10/14/17 07:03 Dose: 5 mg Hydroxyzine Pamoate (Vistaril) 50 mg PO BID [facility]; Protocol Stop: 12/07/17 08:59 Last Admin: 10/14/17 09:01 Dose: 50 mg Insulin Aspart (Novolog) 0 units SUBQ ACHS [facility]; Protocol Stop: 12/07/17 16:29 Last Admin: 10/14/17 07:04 Dose: 2 units Lactobacillus Rhamnosus (Culturelle 15b) 1 each PO DAILY [facility] Stop: 12/09/17 13:59 Last Admin: 10/14/17 09:01 Dose: 1 each Levofloxacin (Levaquin) 500 mg PO DAILY [facility] Stop: 12/08/17 08:59 Last Admin: 10/14/17 09:01 Dose: 500 mg Levothyroxine Sodium (Synthroid) 0.025 mg PO QDAC [facility] Stop: 12/08/17 07:29 Last Admin: 10/14/17 07:03 Dose: 0.025 mg Lorazepam (Ativan) 0.5 mg PO Q4HR PRN; Protocol PRN Reason: Anxiety Stop: 11/06/17 21:40 Last Admin: 10/12/17 00:12 Dose: 0.5 mg Metformin HCl (Glucophage) 850 mg PO TIDWM [facility] Stop: 12/12/17 16:59 Last Admin: 10/14/17 09:01 Dose: 850 mg Miscellaneous (Probiotic Screen) 1 ea MC PRN PRN PRN Reason: PROTOCOL Stop: 12/09/17 11:03 Mupirocin (Bactroban Oint) 1 appl NS BID [facility] Stop: 10/19/17 16:59 Last Admin: 10/14/17 09:01 Dose: 1 appl Olanzapine (Zyprexa) 15 mg PO HS [facility]; Protocol Stop: 12/07/17 20:59 Last Admin: 10/13/17 21:16 Dose: 15 mg Trazodone HCl (Desyrel) 50 mg PO HS [facility]; Protocol Stop: 12/07/17 20:59 Last Admin: 10/13/17 21:16 Dose: 50 mg Zolpidem Tartrate (Ambien) 5 mg PO HS PRN PRN Reason: Insomnia Stop: 12/06/17 21:40 Last Admin: 10/13/17 21:16 Dose: 5 mg General: alert HEENT: NC/AT, PERRLA Neck: Supple Lungs: CTAB Cardiovascular: RRR, Normal S1, Normal S2, without murmur Extremities: excoriation Neurological: alert Internal Medicine Assmt/Plan - Assessment Assessment: acute uti with e.coli dm dyslipidemia hypothyroidism - Plan Plan: monitor bp continue current plan of care Nutritional Asmnt/Malnutr-PDOC - Dietary Evaluation Malnutrition Findings (Please click <Entered> for more info): Nutritional Asmnt/Malnutrition Start: 10/08/17 14: 31 Text: Status: Complete Freq: Protocol: Document 10/08/17 14:31 LCHENG (Rec: 10/08/17 15:05 LCHENG [email or web address]) Nutritional Asmnt/Malnutrition Patient General Information Nutritional Screening High Risk Diagnosis psychosis Pertinent Medical Hx/Surgical Hx DM, dyslipidemia, thyroid disorder, right knee fusion, gait abn, schizophrenia Subjective Information Pt seen on wheelchair waiting for ciggratte. Pt stated he did not like the lunch, he only likes burger and fries, mac & cheese, does not like any fruits or veggies. Glucose 345 at admission noted. Not able to provide diabetic education d/t pt mental status . Per EMR, pt consumed 100% of breakfast today. Current Diet Order/ Nutrition Support CCHO-60gm Pertinent Medications diabeta, novolog, synthroid, glucophage Pertinent Labs 10/07 Na 131, glucose 345, POC 239 Nutritional Hx/Data Height 5 ft 4 in Height (Calculated Centimeters) 162.6 Current Weight (lbs) 156 lb Weight (Calculated Kilograms) 70.8 Weight (Calculated Grams) 43273.4 [place] Body Weight 130 Body Mass Index (BMI) 26.7 Weight Status Overweight GI Symptoms GI Symptoms None Last BM not indicated Difficult in: None Food Allergies Yes: seafood Skin Integrity/Comment: intact Current %PO Good (75-100%) Estimated Nutritional Goals BEE in Kcals: Using Current wt Calories/Kcals/Kg 23-27 Kcals Calculated 0236-4145 Protein: Using Current wt Protein g/k Protein Calculated 79 Fluid: ml 1817-2133ml (1ml/kcal) Nutritional Problem 1. Problem Problem altered nutrition related labs Etiology hx of DM Signs/Symptoms: glucose 345, POC 239 Malnutrition Alert Is there a minimum of two criteria No selected? Query Text:Check all the applicable criteria. A minimum of two criteria are recommended for diagnosis of either severe or non-severe malnutrition. Malnutrition Related to Morbid Obesity Malnutrition related to morbid obesity No Intervention/Recommendation Comments 1. [facility] as [facility]. 2. Monitor PO intake, wt, labs and skin integrity 3. F/U as moderate risk in 3-5 days, 10/11-10/13, PO check Expected Outcomes/Goals Expected Outcomes/Goals 1. PO intake to meet at least 75% of nutritional needs. 2. Wt stability, skin to remain intact, labs to approach WNL.
[2017-10-14] MEDS: Atorvastatin Calcium 10 MG TAB PO SCH (20:33)
[2017-10-15] MEDS: Levothyroxine 0.025 Mg Tab PO SCH (06:31)
[2017-10-15] MEDS: INSULIN ASPART, RECOMBINANT 100 UNITS/ML SUBQ SCH ×4 (06:31→20:33)
[2017-10-15] MEDS: Lactobacillus Rhamnosus GG 15 Billion CFU CAP.SPRINK PO SCH (08:23)
--- NOTE | 2017-10-15 13:09 | Internal Medicine Prog Note ---
Internal Medicine Subjective - Subjective Service Date: 10/15/17 Patient is:: awake Per staff patient has:: tolerating meds Internal Medicine Objective - Results Result Diagrams: 10/07/17 17:34 10/07/17 17:34 Recent Labs: Laboratory Last Values WBC 6.2 Th/cmm (4.8-10.8) 10/07/17 17:34 RBC 5.13 Mil/cmm (4.30-5.70) 10/07/17 17:34 Hgb 15.4 gm/dL (12-16) 10/07/17 17:34 Hct 46.8 % (41.0-60) 10/07/17 17:34 MCV 91.1 fl (80-99) 10/07/17 17:34 MCH 30.0 pg (26.0-30.0) 10/07/17 17:34 MCHC Differential 33.0 pg (28.0-36.0) 10/07/17 17:34 RDW 12.5 % (11.5-20.0) 10/07/17 17:34 Plt Count 184 Th/cmm (150-400) 10/07/17 17:34 MPV 8.9 fl 10/07/17 17:34 Neutrophils % 68.9 % (40.0-80.0) 10/07/17 17:34 Lymphocytes % 24.1 % (20.0-50.0) 10/07/17 17:34 Monocytes % 5.5 % (2.0-10.0) 10/07/17 17:34 Eosinophils % 0.6 % (0.0-5.0) 10/07/17 17:34 Basophils % 0.9 % (0.0-2.0) 10/07/17 17:34 PT 10.2 SECONDS (9.5-11.5) 10/07/17 17:34 INR 0.98 (0.5-1.4) 10/07/17 17:34 Sodium 131 mEq/L (136-145) L 10/07/17 17:34 Potassium 4.6 mEq/L (3.5-5.1) 10/07/17 17:34 Chloride 99 mEq/L (98-107) 10/07/17 17:34 Carbon Dioxide 21.8 mEq/L (21.0-31.0) 10/07/17 17:34 Anion Gap 14.8 (7.0-16.0) 10/07/17 17:34 BUN 21 mg/dL (7-25) 10/07/17 17:34 Creatinine 0.7 mg/dL (0.7-1.3) 10/07/17 17:34 Est GFR ( Amer) > 60.0 ml/min (>90) 10/07/17 17:34 Est GFR (Non-Af Amer) > 60.0 ml/min 10/07/17 17:34 BUN/Creatinine Ratio 30.0 10/07/17 17:34 Glucose 345 mg/dL (70-105) H 10/07/17 17:34 POC Glucose 197 MG/DL (70 - 105) H 10/15/17 11:30 Hemoglobin A1c % 9.5 % (4.0-6.0) H 10/07/17 17:24 Calcium 9.6 mg/dL (8.6-10.3) 10/07/17 17:34 Total Bilirubin 0.8 mg/dL (0.3-1.0) 10/07/17 17:34 AST 16 U/L (13-39) 10/07/17 17:34 ALT 10 U/L (7-52) 10/07/17 17:34 Alkaline Phosphatase 59 U/L (34-104) 10/07/17 17:34 Total Protein 6.9 gm/dL (6.0-8.3) 10/07/17 17:34 Albumin 4.1 gm/dL (4.2-5.5) L 10/07/17 17:34 Globulin 2.8 gm/dL 10/07/17 17:34 Albumin/Globulin Ratio 1.5 (1.0-1.8) 10/07/17 17:34 Triglycerides 75 mg/dL (<150) 10/11/17 07:43 Cholesterol 159 mg/dL (<200) 10/11/17 07:43 LDL Cholesterol Direct 89 mg/dL (75-193) 10/11/17 07:43 HDL Cholesterol 60 mg/dL (23-92) 10/11/17 07:43 Urine Source CLEAN C 10/07/17 17:51 Urine Color YELLOW 10/07/17 17:51 Urine Clarity HAZY (CLEAR) 10/07/17 17:51 Urine pH 5.5 (4.6 - 8.0) 10/07/17 17:51 Ur Specific [place] 1.020 (1.005-1.030) 10/07/17 17:51 Urine Protein TRACE mg/dL (NEGATIVE) 10/07/17 17:51 Urine Glucose (UA) >=1000 mg/dL (NEGATIVE) H 10/07/17 17:51 Urine Ketones NEGATIVE mg/dL (NEGATIVE) 10/07/17 17:51 Urine Blood NEGATIVE (NEGATIVE) 10/07/17 17:51 Urine Nitrate POSITIVE (NEGATIVE) H 10/07/17 17:51 Urine Bilirubin NEGATIVE (NEGATIVE) 10/07/17 17:51 Urine Urobilinogen 0.2 E.U./dL (0.2 - 1.0) 10/07/17 17:51 Ur Leukocyte Esterase NEGATIVE (NEGATIVE) 10/07/17 17:51 Urine RBC 0-2 /hpf (0-5) H 10/07/17 17:51 Urine WBC 6-10 /hpf (0-5) 10/07/17 17:51 Ur Epithelial Cells OCCASIONAL /lpf (FEW) 10/07/17 17:51 Urine Bacteria 3+ /hpf (NONE SEEN) H 10/07/17 17:51 Salicylates < 25.0 mg/L (30.0-100.0) L 10/07/17 17:34 Urine Opiates Screen NEGATIVE (NEGATIVE) 10/07/17 17:51 Urine Methadone Screen NEGATIVE (NEGATIVE) 10/07/17 17:51 Acetaminophen < 10.0 ug/mL (10.0-30.0) L 10/07/17 17:34 Ur Barbiturates Screen NEGATIVE (NEGATIVE) 10/07/17 17:51 Ur Tricyclics Screen NEGATIVE (NEGATIVE) 10/07/17 17:51 Ur Phencyclidine Scrn NEGATIVE (NEGATIVE) 10/07/17 17:51 Amphetamines Screen NEGATIVE (NEGATIVE) 10/07/17 17:51 U Methamphetamines Scrn NEGATIVE (NEGATIVE) 10/07/17 17:51 U Benzodiazepines Scrn NEGATIVE (NEGATIVE) 10/07/17 17:51 U Cocaine Metab Screen NEGATIVE (NEGATIVE) 10/07/17 17:51 U Cannabinoids Screen NEGATIVE (NEGATIVE) 10/07/17 17:51 Ethyl Alcohol < 10 mg/dL (0-10) 10/07/17 17:34 - Physical Exam Vitals and I&O: Vital Signs Temp 0 F 10/14/17 19:44 Pulse 82 10/14/17 14:00 Resp 20 10/14/17 14:00 BP 112/60 10/14/17 14:00 Pulse Ox 97 10/14/17 14:00 Intake & Output 10/14/17 10/15/17 10/15/17 18:59 06:59 18:59 Intake Total 1000 300 Balance 1000 300 Intake: Oral 1000 300 Other: # Voids 4 1 # Bowel Movements 1 0 Active Medications: Current Medications Acetaminophen (Tylenol) 650 mg PO Q4HR PRN PRN Reason: Mild Pain / Temp above 100 Stop: 12/06/17 21:40 Atorvastatin Calcium (Lipitor) 10 mg PO HS [facility]; Protocol Stop: 12/07/17 20:59 Last Admin: 10/14/17 20:33 Dose: 10 mg Glyburide (Diabeta) 5 mg PO BIDAC [facility] Stop: 12/07/17 16:29 Last Admin: 10/15/17 06:31 Dose: Not Given Hydroxyzine Pamoate (Vistaril) 50 mg PO BID [facility]; Protocol Stop: 12/07/17 08:59 Last Admin: 10/15/17 08:24 Dose: 50 mg Insulin Aspart (Novolog) 0 units SUBQ ACHS [facility]; Protocol Stop: 12/07/17 16:29 Last Admin: 10/15/17 11:30 Dose: Not Given Lactobacillus Rhamnosus (Culturelle 15b) 1 each PO DAILY [facility] Stop: 12/09/17 13:59 Last Admin: 10/15/17 08:23 Dose: 1 each Levofloxacin (Levaquin) 500 mg PO DAILY [facility] Stop: 12/08/17 08:59 Last Admin: 10/15/17 08:22 Dose: 500 mg Levothyroxine Sodium (Synthroid) 0.025 mg PO QDAC [facility] Stop: 12/08/17 07:29 Last Admin: 10/15/17 06:31 Dose: Not Given Lorazepam (Ativan) 0.5 mg PO Q4HR PRN; Protocol PRN Reason: Anxiety Stop: 11/06/17 21:40 Last Admin: 10/14/17 20:33 Dose: 0.5 mg Metformin HCl (Glucophage) 850 mg PO TIDWM [facility] Stop: 12/12/17 16:59 Last Admin: 10/15/17 12:20 Dose: 850 mg Miscellaneous (Probiotic Screen) 1 ea MC PRN PRN PRN Reason: PROTOCOL Stop: 12/09/17 11:03 Mupirocin (Bactroban Oint) 1 appl NS BID [facility] Stop: 10/19/17 16:59 Last Admin: 10/15/17 08:22 Dose: 1 appl Olanzapine (Zyprexa) 15 mg PO HS [facility]; Protocol Stop: 12/07/17 20:59 Last Admin: 10/14/17 20:33 Dose: 15 mg Trazodone HCl (Desyrel) 50 mg PO HS [facility]; Protocol Stop: 12/07/17 20:59 Last Admin: 10/14/17 20:33 Dose: 50 mg Zolpidem Tartrate (Ambien) 5 mg PO HS PRN PRN Reason: Insomnia Stop: 12/06/17 21:40 Last Admin: 10/14/17 20:33 Dose: 5 mg General: alert HEENT: NC/AT, PERRLA Neck: Supple Lungs: CTAB Cardiovascular: RRR, Normal S1, Normal S2, without murmur Extremities: excoriation Neurological: alert Internal Medicine Assmt/Plan - Assessment Assessment: acute uti with e.coli dm dyslipidemia hypothyroidism - Plan Plan: monitor bp continue current plan of care Nutritional Asmnt/Malnutr-PDOC - Dietary Evaluation Malnutrition Findings (Please click <Entered> for more info): Nutritional Asmnt/Malnutrition Start: 10/08/17 14: 31 Text: Status: Complete Freq: Protocol: Document 10/08/17 14:31 LCHENG (Rec: 10/08/17 15:05 LCHENG [email or web address]) Nutritional Asmnt/Malnutrition Patient General Information Nutritional Screening High Risk Diagnosis psychosis Pertinent Medical Hx/Surgical Hx DM, dyslipidemia, thyroid disorder, right knee fusion, gait abn, schizophrenia Subjective Information Pt seen on wheelchair waiting for ciggratte. Pt stated he did not like the lunch, he only likes burger and fries, mac & cheese, does not like any fruits or veggies. Glucose 345 at admission noted. Not able to provide diabetic education d/t pt mental status . Per EMR, pt consumed 100% of breakfast today. Current Diet Order/ Nutrition Support CCHO-60gm Pertinent Medications diabeta, novolog, synthroid, glucophage Pertinent Labs 10/07 Na 131, glucose 345, POC 239 Nutritional Hx/Data Height 5 ft 4 in Height (Calculated Centimeters) 162.6 Current Weight (lbs) 156 lb Weight (Calculated Kilograms) 70.8 Weight (Calculated Grams) 07933.4 [place] Body Weight 130 Body Mass Index (BMI) 26.7 Weight Status Overweight GI Symptoms GI Symptoms None Last BM not indicated Difficult in: None Food Allergies Yes: seafood Skin Integrity/Comment: intact Current %PO Good (75-100%) Estimated Nutritional Goals BEE in Kcals: Using Current wt Calories/Kcals/Kg 23-27 Kcals Calculated 0750-3987 Protein: Using Current wt Protein g/k Protein Calculated 79 Fluid: ml 1817-2133ml (1ml/kcal) Nutritional Problem 1. Problem Problem altered nutrition related labs Etiology hx of DM Signs/Symptoms: glucose 345, POC 239 Malnutrition Alert Is there a minimum of two criteria No selected? Query Text:Check all the applicable criteria. A minimum of two criteria are recommended for diagnosis of either severe or non-severe malnutrition. Malnutrition Related to Morbid Obesity Malnutrition related to morbid obesity No Intervention/Recommendation Comments 1. Continue with [facility] 60gm diet as ordered. 2. Monitor PO intake, wt, labs and skin integrity 3. F/U as moderate risk in 3-5 days, 10/11-10/13, PO check Expected Outcomes/Goals Expected Outcomes/Goals 1. PO intake to meet at least 75% of nutritional needs. 2. Wt stability, skin to remain intact, labs to approach WNL.
[2017-10-15] MEDS: Atorvastatin Calcium 10 MG TAB PO SCH (20:33)
--- NOTE | 2017-10-15 21:31 | Progress Notes ---
DATE: 10/15/2017 SUBJECTIVE: Case was discussed with staff of the patient, reviewed records. The patient continues to have poor insight, internally preoccupied, unpredictable and impulsive, needing redirection. He is sleeping well, eating well. He tolerated the medication with no side effects, no sedation or nausea, no extrapyramidal symptoms. We will continue to work with the patient, group therapy, milieu therapy and adjust medications as needed. [facility]# [id number]
[2017-10-16] MEDS: INSULIN ASPART, RECOMBINANT 100 UNITS/ML SUBQ SCH ×3 (06:30→16:52)
[2017-10-16] MEDS: Levothyroxine 0.025 Mg Tab PO SCH (06:30)
[2017-10-16] MEDS: Lactobacillus Rhamnosus GG 15 Billion CFU CAP.SPRINK PO SCH (08:36)
--- NOTE | 2017-10-16 12:44 | Internal Medicine Prog Note ---
Internal Medicine Subjective - Subjective Patient seen and examined:: with staff, chart reviewed Patient is:: awake, non-verbal, non-interactive, ben chair, agitated, confused Per staff patient has:: no adverse event, no episodes of fall, confused, tolerating meds Internal Medicine Objective - Results Result Diagrams: 10/07/17 17:34 10/07/17 17:34 Recent Labs: Laboratory Last Values WBC 6.2 Th/cmm (4.8-10.8) 10/07/17 17:34 RBC 5.13 Mil/cmm (4.30-5.70) 10/07/17 17:34 Hgb 15.4 gm/dL (12-16) 10/07/17 17:34 Hct 46.8 % (41.0-60) 10/07/17 17:34 MCV 91.1 fl (80-99) 10/07/17 17:34 MCH 30.0 pg (26.0-30.0) 10/07/17 17:34 MCHC Differential 33.0 pg (28.0-36.0) 10/07/17 17:34 RDW 12.5 % (11.5-20.0) 10/07/17 17:34 Plt Count 184 Th/cmm (150-400) 10/07/17 17:34 MPV 8.9 fl 10/07/17 17:34 Neutrophils % 68.9 % (40.0-80.0) 10/07/17 17:34 Lymphocytes % 24.1 % (20.0-50.0) 10/07/17 17:34 Monocytes % 5.5 % (2.0-10.0) 10/07/17 17:34 Eosinophils % 0.6 % (0.0-5.0) 10/07/17 17:34 Basophils % 0.9 % (0.0-2.0) 10/07/17 17:34 PT 10.2 SECONDS (9.5-11.5) 10/07/17 17:34 INR 0.98 (0.5-1.4) 10/07/17 17:34 Sodium 131 mEq/L (136-145) L 10/07/17 17:34 Potassium 4.6 mEq/L (3.5-5.1) 10/07/17 17:34 Chloride 99 mEq/L (98-107) 10/07/17 17:34 Carbon Dioxide 21.8 mEq/L (21.0-31.0) 10/07/17 17:34 Anion Gap 14.8 (7.0-16.0) 10/07/17 17:34 BUN 21 mg/dL (7-25) 10/07/17 17:34 Creatinine 0.7 mg/dL (0.7-1.3) 10/07/17 17:34 Est GFR ( Amer) > 60.0 ml/min (>90) 10/07/17 17:34 Est GFR (Non-Af Amer) > 60.0 ml/min 10/07/17 17:34 BUN/Creatinine Ratio 30.0 10/07/17 17:34 Glucose 345 mg/dL (70-105) H 10/07/17 17:34 POC Glucose 197 MG/DL (70 - 105) H 10/15/17 11:30 Hemoglobin A1c % 9.5 % (4.0-6.0) H 10/07/17 17:24 Calcium 9.6 mg/dL (8.6-10.3) 10/07/17 17:34 Total Bilirubin 0.8 mg/dL (0.3-1.0) 10/07/17 17:34 AST 16 U/L (13-39) 10/07/17 17:34 ALT 10 U/L (7-52) 10/07/17 17:34 Alkaline Phosphatase 59 U/L (34-104) 10/07/17 17:34 Total Protein 6.9 gm/dL (6.0-8.3) 10/07/17 17:34 Albumin 4.1 gm/dL (4.2-5.5) L 10/07/17 17:34 Globulin 2.8 gm/dL 10/07/17 17:34 Albumin/Globulin Ratio 1.5 (1.0-1.8) 10/07/17 17:34 Triglycerides 75 mg/dL (<150) 10/11/17 07:43 Cholesterol 159 mg/dL (<200) 10/11/17 07:43 LDL Cholesterol Direct 89 mg/dL (75-193) 10/11/17 07:43 HDL Cholesterol 60 mg/dL (23-92) 08/23/18 07:43 Urine Source CLEAN C 10/07/17 17:51 Urine Color YELLOW 10/07/17 17:51 Urine Clarity HAZY (CLEAR) 10/07/17 17:51 Urine pH 5.5 (4.6 - 8.0) 10/07/17 17:51 Ur Specific [place] 1.020 (1.005-1.030) 10/07/17 17:51 Urine Protein TRACE mg/dL (NEGATIVE) 10/07/17 17:51 Urine Glucose (UA) >=1000 mg/dL (NEGATIVE) H 10/07/17 17:51 Urine Ketones NEGATIVE mg/dL (NEGATIVE) 10/07/17 17:51 Urine Blood NEGATIVE (NEGATIVE) 10/07/17 17:51 Urine Nitrate POSITIVE (NEGATIVE) H 10/07/17 17:51 Urine Bilirubin NEGATIVE (NEGATIVE) 10/07/17 17:51 Urine Urobilinogen 0.2 E.U./dL (0.2 - 1.0) 10/07/17 17:51 Ur Leukocyte Esterase NEGATIVE (NEGATIVE) 10/07/17 17:51 Urine RBC 0-2 /hpf (0-5) H 10/07/17 17:51 Urine WBC 6-10 /hpf (0-5) 10/07/17 17:51 Ur Epithelial Cells OCCASIONAL /lpf (FEW) 10/07/17 17:51 Urine Bacteria 3+ /hpf (NONE SEEN) H 10/07/17 17:51 Salicylates < 25.0 mg/L (30.0-100.0) L 10/07/17 17:34 Urine Opiates Screen NEGATIVE (NEGATIVE) 10/07/17 17:51 Urine Methadone Screen NEGATIVE (NEGATIVE) 10/07/17 17:51 Acetaminophen < 10.0 ug/mL (10.0-30.0) L 10/07/17 17:34 Ur Barbiturates Screen NEGATIVE (NEGATIVE) 10/07/17 17:51 Ur Tricyclics Screen NEGATIVE (NEGATIVE) 10/07/17 17:51 Ur Phencyclidine Scrn NEGATIVE (NEGATIVE) 10/07/17 17:51 Amphetamines Screen NEGATIVE (NEGATIVE) 10/07/17 17:51 U Methamphetamines Scrn NEGATIVE (NEGATIVE) 10/07/17 17:51 U Benzodiazepines Scrn NEGATIVE (NEGATIVE) 10/07/17 17:51 U Cocaine Metab Screen NEGATIVE (NEGATIVE) 10/07/17 17:51 U Cannabinoids Screen NEGATIVE (NEGATIVE) 10/07/17 17:51 Ethyl Alcohol < 10 mg/dL (0-10) 10/07/17 17:34 - Physical Exam Vitals and I&O: Vital Signs Temp 0 F 10/16/17 06:10 Pulse 82 10/15/17 20:02 Resp 19 10/15/17 20:02 BP 110/66 10/15/17 20:02 Pulse Ox 96 10/15/17 20:02 Intake & Output 10/15/17 10/16/17 10/16/17 18:59 06:59 18:59 Intake Total 900 120 Balance 900 120 Intake: Oral 900 120 Other: # Voids 4 3 # Bowel Movements 1 0 Active Medications: Current Medications Acetaminophen (Tylenol) 650 mg PO Q4HR PRN PRN Reason: Mild Pain / Temp above 100 Stop: 12/06/17 21:40 Atorvastatin Calcium (Lipitor) 10 mg PO HS [facility]; Protocol Stop: 12/07/17 20:59 Last Admin: 10/15/17 20:33 Dose: 10 mg Glyburide (Diabeta) 5 mg PO BIDAC [facility] Stop: 12/07/17 16:29 Last Admin: 10/16/17 06:30 Dose: 5 mg Hydroxyzine Pamoate (Vistaril) 50 mg PO BID [facility]; Protocol Stop: 12/07/17 08:59 Last Admin: 10/16/17 08:37 Dose: 50 mg Insulin Aspart (Novolog) 0 units SUBQ ACHS [facility]; Protocol Stop: 12/07/17 16:29 Last Admin: 10/16/17 12:08 Dose: Not Given Lactobacillus Rhamnosus (Culturelle 15b) 1 each PO DAILY [facility] Stop: 12/09/17 13:59 Last Admin: 10/16/17 08:36 Dose: 1 each Levofloxacin (Levaquin) 500 mg PO DAILY [facility] Stop: 12/08/17 08:59 Last Admin: 10/16/17 08:37 Dose: 500 mg Levothyroxine Sodium (Synthroid) 0.025 mg PO QDAC [facility] Stop: 12/08/17 07:29 Last Admin: 10/16/17 06:30 Dose: 0.025 mg Lorazepam (Ativan) 0.5 mg PO Q4HR PRN; Protocol PRN Reason: Anxiety Stop: 11/06/17 21:40 Last Admin: 10/15/17 20:34 Dose: 0.5 mg Metformin HCl (Glucophage) 850 mg PO TIDWM [facility] Stop: 12/12/17 16:59 Last Admin: 10/16/17 08:37 Dose: 850 mg Miscellaneous (Probiotic Screen) 1 ea MC PRN PRN PRN Reason: PROTOCOL Stop: 12/09/17 11:03 Mupirocin (Bactroban Oint) 1 appl NS BID [facility] Stop: 10/19/17 16:59 Last Admin: 10/16/17 08:42 Dose: 1 appl Olanzapine (Zyprexa) 15 mg PO HS [facility]; Protocol Stop: 12/07/17 20:59 Last Admin: 10/15/17 20:34 Dose: 15 mg Trazodone HCl (Desyrel) 50 mg PO HS [facility]; Protocol Stop: 12/07/17 20:59 Last Admin: 10/15/17 20:34 Dose: 50 mg Zolpidem Tartrate (Ambien) 5 mg PO HS PRN PRN Reason: Insomnia Stop: 12/06/17 21:40 Last Admin: 10/15/17 20:34 Dose: 5 mg General: demented HEENT: NC/AT, PERRLA Neck: Supple Lungs: CTAB Cardiovascular: RRR, Normal S1, Normal S2, without murmur Extremities: excoriation Neurological: alert Internal Medicine Assmt/Plan - Assessment Assessment: Assessment Assessment: acute uti with e.coli dm dyslipidemia hypothyroidism - Plan Plan: monitor bp continue current plan of care - Plan Plan: ada diet iss fall precaution dw rn Nutritional Asmnt/Malnutr-PDOC - Dietary Evaluation Malnutrition Findings (Please click <Entered> for more info): Nutritional Asmnt/Malnutrition Start: 10/08/17 14: 31 Text: Status: Complete Freq: Protocol: Document 10/08/17 14:31 CARYN (Rec: 10/08/17 15:05 CARYN [id number]) Nutritional Asmnt/Malnutrition Patient General Information Nutritional Screening High Risk Diagnosis psychosis Pertinent Medical Hx/Surgical Hx DM, dyslipidemia, thyroid disorder, right knee fusion, gait abn, schizophrenia Subjective Information Pt seen on wheelchair waiting for ciggratte. Pt stated he did not like the lunch, he only likes burger and fries, mac & cheese, does not like any fruits or veggies. Glucose 345 at admission noted. Not able to provide diabetic education d/t pt mental status . Per EMR, pt consumed 100% of breakfast today. Current Diet Order/ Nutrition Support [facility]-60gm Pertinent Medications diabeta, novolog, synthroid, glucophage Pertinent Labs 10/07 Na 131, glucose 345, POC 239 Nutritional Hx/Data Height 1.63 m Height (Calculated Centimeters) 162.6 Current Weight (lbs) 70.76 kg Weight (Calculated Kilograms) 70.8 Weight (Calculated Grams) 57939.4 [place] Body Weight 130 Body Mass Index (BMI) 26.7 Weight Status Overweight GI Symptoms GI Symptoms None Last BM not indicated Difficult in: None Food Allergies Yes: seafood Skin Integrity/Comment: intact Current %PO Good (75-100%) Estimated Nutritional Goals BEE in Kcals: Using Current wt Calories/Kcals/Kg 23-27 Kcals Calculated 1945-2202 Protein: Using Current wt Protein g/k Protein Calculated 79 Fluid: ml 1817-2133ml (1ml/kcal) Nutritional Problem 1. Problem Problem altered nutrition related labs Etiology hx of DM Signs/Symptoms: glucose 345, POC 239 Malnutrition Alert Is there a minimum of two criteria No selected? Query Text:Check all the applicable criteria. A minimum of two criteria are recommended for diagnosis of either severe or non-severe malnutrition. Malnutrition Related to Morbid Obesity Malnutrition related to morbid obesity No Intervention/Recommendation Comments 1. Continue with [facility] 60gm diet as ordered. 2. Monitor PO intake, wt, labs and skin integrity 3. F/U as moderate risk in 3-5 days, 10/11-10/13, PO check Expected Outcomes/Goals Expected Outcomes/Goals 1. PO intake to meet at least 75% of nutritional needs. 2. Wt stability, skin to remain intact, labs to approach WNL.
--- NOTE | 2017-10-16 20:30 | Progress Notes ---
DATE: 10/16/2017 Case was discussed with staff of the patient, reviewed records. The patient is in a wheelchair. He continues to be somewhat irritable, at times demanding; however, he has been easier to redirect. He is sleeping better, eating better, and compliant with the medications with no side effects, no sedation, no nausea, no extrapyramidal symptoms. It seemed like the patient may have not been compliant with his medications. His blood sugar is high and he is diabetic and he is on medication for diabetes that is managed by Dr. Cunningham. We will continue to work with the patient in group therapy and milieu therapy, adjust the medications as needed. JOB# [id number]
[2017-10-16] MEDS: Atorvastatin Calcium 10 MG TAB PO SCH (21:11)
[2017-10-17] MEDS: INSULIN ASPART, RECOMBINANT 100 UNITS/ML SUBQ SCH ×5 (05:50→21:20)
[2017-10-17] MEDS: Levothyroxine 0.025 Mg Tab PO SCH (06:54)
[2017-10-17] MEDS: Lactobacillus Rhamnosus GG 15 Billion CFU CAP.SPRINK PO SCH (09:22)
--- NOTE | 2017-10-17 12:24 | Progress Notes ---
DATE: 10/17/2017 Case was discussed with staff of the patient, reviewed records. The staff report, the patient in general is a bit calmer. He is still having agitation, irritability, but he has been easily redirected. We have to give him emergency medication. He has been compliant with the medication with no side effects, no sedation, no nausea, no extrapyramidal symptoms. His blood sugar is being monitored by Dr. Cunningham. No side effects with the medication, no sedation, no nausea, no extrapyramidal symptoms and if he continues to do well, I do have plans to discharge him soon. We will continue to work with the patient in group therapy and milieu therapy, adjust the medications as needed. JOB# [id number]
--- NOTE | 2017-10-17 13:58 | Internal Medicine Prog Note ---
Internal Medicine Subjective - Subjective Service Date: 10/17/17 Patient is:: awake, non-verbal, non-interactive, ben chair, agitated, confused Per staff patient has:: no adverse event, no episodes of fall, confused, tolerating meds Internal Medicine Objective - Results Result Diagrams: 10/07/17 17:34 10/07/17 17:34 Recent Labs: Laboratory Last Values WBC 6.2 Th/cmm (4.8-10.8) 10/07/17 17:34 RBC 5.13 Mil/cmm (4.30-5.70) 10/07/17 17:34 Hgb 15.4 gm/dL (12-16) 10/07/17 17:34 Hct 46.8 % (41.0-60) 10/07/17 17:34 MCV 91.1 fl (80-99) 10/07/17 17:34 MCH 30.0 pg (26.0-30.0) 10/07/17 17:34 MCHC Differential 33.0 pg (28.0-36.0) 10/07/17 17:34 RDW 12.5 % (11.5-20.0) 10/07/17 17:34 Plt Count 184 Th/cmm (150-400) 10/07/17 17:34 MPV 8.9 fl 10/07/17 17:34 Neutrophils % 68.9 % (40.0-80.0) 10/07/17 17:34 Lymphocytes % 24.1 % (20.0-50.0) 10/07/17 17:34 Monocytes % 5.5 % (2.0-10.0) 10/07/17 17:34 Eosinophils % 0.6 % (0.0-5.0) 10/07/17 17:34 Basophils % 0.9 % (0.0-2.0) 10/07/17 17:34 PT 10.2 SECONDS (9.5-11.5) 10/07/17 17:34 INR 0.98 (0.5-1.4) 10/07/17 17:34 Sodium 131 mEq/L (136-145) L 10/07/17 17:34 Potassium 4.6 mEq/L (3.5-5.1) 10/07/17 17:34 Chloride 99 mEq/L (98-107) 10/07/17 17:34 Carbon Dioxide 21.8 mEq/L (21.0-31.0) 10/07/17 17:34 Anion Gap 14.8 (7.0-16.0) 10/07/17 17:34 BUN 21 mg/dL (7-25) 10/07/17 17:34 Creatinine 0.7 mg/dL (0.7-1.3) 10/07/17 17:34 Est GFR ( Amer) > 60.0 ml/min (>90) 10/07/17 17:34 Est GFR (Non-Af Amer) > 60.0 ml/min 10/07/17 17:34 BUN/Creatinine Ratio 30.0 10/07/17 17:34 Glucose 345 mg/dL (70-105) H 10/07/17 17:34 POC Glucose 197 MG/DL (70 - 105) H 10/15/17 11:30 Hemoglobin A1c % 9.5 % (4.0-6.0) H 10/07/17 17:24 Calcium 9.6 mg/dL (8.6-10.3) 10/07/17 17:34 Total Bilirubin 0.8 mg/dL (0.3-1.0) 10/07/17 17:34 AST 16 U/L (13-39) 10/07/17 17:34 ALT 10 U/L (7-52) 10/07/17 17:34 Alkaline Phosphatase 59 U/L (34-104) 10/07/17 17:34 Total Protein 6.9 gm/dL (6.0-8.3) 10/07/17 17:34 Albumin 4.1 gm/dL (4.2-5.5) L 10/07/17 17:34 Globulin 2.8 gm/dL 10/07/17 17:34 Albumin/Globulin Ratio 1.5 (1.0-1.8) 10/07/17 17:34 Triglycerides 75 mg/dL (<150) 10/11/17 07:43 Cholesterol 159 mg/dL (<200) 10/11/17 07:43 LDL Cholesterol Direct 89 mg/dL (75-193) 10/11/17 07:43 HDL Cholesterol 60 mg/dL (23-92) 10/11/17 07:43 Urine Source CLEAN C 10/07/17 17:51 Urine Color YELLOW 10/07/17 17:51 Urine Clarity HAZY (CLEAR) 10/07/17 17:51 Urine pH 5.5 (4.6 - 8.0) 10/07/17 17:51 Ur Specific [place] 1.020 (1.005-1.030) 10/07/17 17:51 Urine Protein TRACE mg/dL (NEGATIVE) 10/07/17 17:51 Urine Glucose (UA) >=1000 mg/dL (NEGATIVE) H 10/07/17 17:51 Urine Ketones NEGATIVE mg/dL (NEGATIVE) 10/07/17 17:51 Urine Blood NEGATIVE (NEGATIVE) 10/07/17 17:51 Urine Nitrate POSITIVE (NEGATIVE) H 10/07/17 17:51 Urine Bilirubin NEGATIVE (NEGATIVE) 10/07/17 17:51 Urine Urobilinogen 0.2 E.U./dL (0.2 - 1.0) 10/07/17 17:51 Ur Leukocyte Esterase NEGATIVE (NEGATIVE) 10/07/17 17:51 Urine RBC 0-2 /hpf (0-5) H 10/07/17 17:51 Urine WBC 6-10 /hpf (0-5) 10/07/17 17:51 Ur Epithelial Cells OCCASIONAL /lpf (FEW) 10/07/17 17:51 Urine Bacteria 3+ /hpf (NONE SEEN) H 10/07/17 17:51 Salicylates < 25.0 mg/L (30.0-100.0) L 10/07/17 17:34 Urine Opiates Screen NEGATIVE (NEGATIVE) 10/07/17 17:51 Urine Methadone Screen NEGATIVE (NEGATIVE) 10/07/17 17:51 Acetaminophen < 10.0 ug/mL (10.0-30.0) L 10/07/17 17:34 Ur Barbiturates Screen NEGATIVE (NEGATIVE) 10/07/17 17:51 Ur Tricyclics Screen NEGATIVE (NEGATIVE) 10/07/17 17:51 Ur Phencyclidine Scrn NEGATIVE (NEGATIVE) 10/07/17 17:51 Amphetamines Screen NEGATIVE (NEGATIVE) 10/07/17 17:51 U Methamphetamines Scrn NEGATIVE (NEGATIVE) 10/07/17 17:51 U Benzodiazepines Scrn NEGATIVE (NEGATIVE) 10/07/17 17:51 U Cocaine Metab Screen NEGATIVE (NEGATIVE) 10/07/17 17:51 U Cannabinoids Screen NEGATIVE (NEGATIVE) 10/07/17 17:51 Ethyl Alcohol < 10 mg/dL (0-10) 10/07/17 17:34 - Physical Exam Vitals and I&O: Vital Signs Temp 98.7 F 10/17/17 05:53 Pulse 76 10/17/17 05:53 Resp 20 10/17/17 05:53 BP 106/57 10/17/17 05:53 Pulse Ox 95 10/17/17 05:53 Intake & Output 10/16/17 10/17/17 10/17/17 18:59 06:59 18:59 Intake Total 1000 300 Balance 1000 300 Intake: Oral 1000 300 Other: # Voids 4 2 # Bowel Movements 1 0 Active Medications: Current Medications Acetaminophen (Tylenol) 650 mg PO Q4HR PRN PRN Reason: Mild Pain / Temp above 100 Stop: 12/06/17 21:40 Atorvastatin Calcium (Lipitor) 10 mg PO HS [facility]; Protocol Stop: 12/07/17 20:59 Last Admin: 10/16/17 21:11 Dose: 10 mg Glyburide (Diabeta) 5 mg PO BIDAC [facility] Stop: 12/07/17 16:29 Last Admin: 10/17/17 06:54 Dose: 5 mg Hydroxyzine Pamoate (Vistaril) 50 mg PO BID [facility]; Protocol Stop: 12/07/17 08:59 Last Admin: 10/17/17 09:22 Dose: 50 mg Insulin Aspart (Novolog) 0 units SUBQ ACHS [facility]; Protocol Stop: 12/07/17 16:29 Last Admin: 10/17/17 11:44 Dose: Not Given Lactobacillus Rhamnosus (Culturelle 15b) 1 each PO DAILY [facility] Stop: 12/09/17 13:59 Last Admin: 10/17/17 09:22 Dose: 1 each Levofloxacin (Levaquin) 500 mg PO DAILY [facility] Stop: 12/08/17 08:59 Last Admin: 10/17/17 09:22 Dose: 500 mg Levothyroxine Sodium (Synthroid) 0.025 mg PO QDAC [facility] Stop: 12/08/17 07:29 Last Admin: 10/17/17 06:54 Dose: 0.025 mg Lorazepam (Ativan) 0.5 mg PO Q4HR PRN; Protocol PRN Reason: Anxiety Stop: 11/06/17 21:40 Last Admin: 10/15/17 20:34 Dose: 0.5 mg Metformin HCl (Glucophage) 850 mg PO TIDWM [facility] Stop: 12/12/17 16:59 Last Admin: 10/17/17 11:44 Dose: 850 mg Miscellaneous (Probiotic Screen) 1 ea MC PRN PRN PRN Reason: PROTOCOL Stop: 12/09/17 11:03 Mupirocin (Bactroban Oint) 1 appl NS BID [facility] Stop: 10/19/17 16:59 Last Admin: 10/17/17 09:23 Dose: 1 appl Olanzapine (Zyprexa) 15 mg PO HS [facility]; Protocol Stop: 12/07/17 20:59 Last Admin: 10/16/17 21:12 Dose: 15 mg Trazodone HCl (Desyrel) 50 mg PO HS [facility]; Protocol Stop: 12/07/17 20:59 Last Admin: 10/16/17 21:12 Dose: 50 mg Zolpidem Tartrate (Ambien) 5 mg PO HS PRN PRN Reason: Insomnia Stop: 12/06/17 21:40 Last Admin: 10/15/17 20:34 Dose: 5 mg General: demented HEENT: NC/AT, PERRLA Neck: Supple Lungs: CTAB Cardiovascular: RRR, Normal S1, Normal S2, without murmur Extremities: excoriation Neurological: alert Internal Medicine Assmt/Plan - Assessment Assessment: acute uti with e.coli dm dyslipidemia hypothyroidism - Plan Plan: monitor bp continue current plan of care Nutritional Asmnt/Malnutr-PDOC - Dietary Evaluation Malnutrition Findings (Please click <Entered> for more info): Nutritional Asmnt/Malnutrition Start: 10/08/17 14: 31 Text: Status: Complete Freq: Protocol: Document 10/08/17 14:31 MELAG (Rec: 10/08/17 15:05 CARYN [email or web address]) Nutritional Asmnt/Malnutrition Patient General Information Nutritional Screening High Risk Diagnosis psychosis Pertinent Medical Hx/Surgical Hx DM, dyslipidemia, thyroid disorder, right knee fusion, gait abn, schizophrenia Subjective Information Pt seen on wheelchair waiting for ciggratte. Pt stated he did not like the lunch, he only likes burger and fries, mac & cheese, does not like any fruits or veggies. Glucose 345 at admission noted. Not able to provide diabetic education d/t pt mental status . Per EMR, pt consumed 100% of breakfast today. Current Diet Order/ [facility] Pertinent Medications diabeta, novolog, synthroid, glucophage Pertinent Labs 10/07 Na 131, glucose 345, POC 239 Nutritional Hx/Data Height 5 ft 4 in Height (Calculated Centimeters) 162.6 Current Weight (lbs) 156 lb Weight (Calculated Kilograms) 70.8 Weight (Calculated Grams) 73461.4 [place] Body Weight 130 Body Mass Index (BMI) 26.7 Weight Status Overweight GI Symptoms GI Symptoms None Last BM not indicated Difficult in: None Food Allergies Yes: seafood Skin Integrity/Comment: intact Current %PO Good (75-100%) Estimated Nutritional Goals BEE in Kcals: Using Current wt Calories/Kcals/Kg 23-27 Kcals Calculated 0429-9876 Protein: Using Current wt Protein g/k Protein Calculated 79 Fluid: ml 1817-2133ml (1ml/kcal) Nutritional Problem 1. Problem Problem altered nutrition related labs Etiology hx of DM Signs/Symptoms: glucose 345, POC 239 Malnutrition Alert Is there a minimum of two criteria No selected? Query Text:Check all the applicable criteria. A minimum of two criteria are recommended for diagnosis of either severe or non-severe malnutrition. Malnutrition Related to Morbid Obesity Malnutrition related to morbid obesity No Intervention/Recommendation Comments 1. Continue with [facility] 60gm diet as ordered. 2. Monitor PO intake, wt, labs and skin integrity 3. F/U as moderate risk in 3-5 days, 10/11-10/13, PO check Expected Outcomes/Goals Expected Outcomes/Goals 1. PO intake to meet at least 75% of nutritional needs. 2. Wt stability, skin to remain intact, labs to approach WNL.
[2017-10-17] MEDS: Atorvastatin Calcium 10 MG TAB PO SCH (20:31)
[2017-10-18] MEDS: INSULIN ASPART, RECOMBINANT 100 UNITS/ML SUBQ SCH ×2 (06:38→11:32)
[2017-10-18] MEDS: Levothyroxine 0.025 Mg Tab PO SCH (06:40)
[2017-10-18] MEDS: Lactobacillus Rhamnosus GG 15 Billion CFU CAP.SPRINK PO SCH (08:44)
--- NOTE | 2017-10-18 12:29 | Discharge Summary ---
DATE OF DISCHARGE: 10/18/2017 IDENTIFYING INFORMATION: The patient is a 62-year-old male. HISTORY OF PRESENT ILLNESS: The patient was sent from [facility] because of increasing aggression, agitation, irritability. Unable to follow staff directions. Has been increasingly agitated at intermediate where he lives. Also has not been cooperative with the staff. He is a well-known case to me. I have seen him before at ____. He was referred to [facility]. He did not believe he needs to be here. He wanted to go back. COURSE IN THE HOSPITAL: The patient was continued on medication, which was Zyprexa 15 mg at bedtime. He was concerned with the other medication atorvastatin, glyburide, hydroxyzine, insulin, Levaquin, levothyroxine, and metformin. The patient progressively got better. He was less agitated. He was sleeping well, eating well, so he was given trazodone 50 mg at bedtime. He was in a wheelchair throughout his stay. Says he is improved. He was no longer acting out and [facility] agreed to take him back and he wanted to go back there, so we felt he could be discharged to a lesser level of care. FINAL DIAGNOSIS: Schizoaffective disorder, bipolar type with psychosis. MEDICAL DIAGNOSES: The patient with hyperlipidemia, diabetes mellitus, blind in his right eye. Unable to walk, diabetes mellitus, and hypothyroidism. The patient will be discharged back to ____ follow up with the psychiatrist and primary care physician. EXPECTED OUTCOME: Stable if the patient complies with the above. [facility]# [id number]
--- NOTE | 2017-10-18 14:00 | Internal Medicine Prog Note ---
Internal Medicine Subjective - Subjective Service Date: 10/18/17 Patient is:: awake, non-verbal, non-interactive, ben chair, agitated, confused Per staff patient has:: no adverse event, no episodes of fall, confused, tolerating meds Internal Medicine Objective - Results Result Diagrams: 10/07/17 17:34 10/07/17 17:34 Recent Labs: Laboratory Last Values WBC 6.2 Th/cmm (4.8-10.8) 10/07/17 17:34 RBC 5.13 Mil/cmm (4.30-5.70) 10/07/17 17:34 Hgb 15.4 gm/dL (12-16) 10/07/17 17:34 Hct 46.8 % (41.0-60) 10/07/17 17:34 MCV 91.1 fl (80-99) 10/07/17 17:34 MCH 30.0 pg (26.0-30.0) 10/07/17 17:34 MCHC Differential 33.0 pg (28.0-36.0) 10/07/17 17:34 RDW 12.5 % (11.5-20.0) 10/07/17 17:34 Plt Count 184 Th/cmm (150-400) 10/07/17 17:34 MPV 8.9 fl 10/07/17 17:34 Neutrophils % 68.9 % (40.0-80.0) 10/07/17 17:34 Lymphocytes % 24.1 % (20.0-50.0) 10/07/17 17:34 Monocytes % 5.5 % (2.0-10.0) 10/07/17 17:34 Eosinophils % 0.6 % (0.0-5.0) 10/07/17 17:34 Basophils % 0.9 % (0.0-2.0) 10/07/17 17:34 PT 10.2 SECONDS (9.5-11.5) 10/07/17 17:34 INR 0.98 (0.5-1.4) 10/07/17 17:34 Sodium 131 mEq/L (136-145) L 10/07/17 17:34 Potassium 4.6 mEq/L (3.5-5.1) 10/07/17 17:34 Chloride 99 mEq/L (98-107) 10/07/17 17:34 Carbon Dioxide 21.8 mEq/L (21.0-31.0) 10/07/17 17:34 Anion Gap 14.8 (7.0-16.0) 10/07/17 17:34 BUN 21 mg/dL (7-25) 10/07/17 17:34 Creatinine 0.7 mg/dL (0.7-1.3) 10/07/17 17:34 Est GFR ( Amer) > 60.0 ml/min (>90) 10/07/17 17:34 Est GFR (Non-Af Amer) > 60.0 ml/min 10/07/17 17:34 BUN/Creatinine Ratio 30.0 10/07/17 17:34 Glucose 345 mg/dL (70-105) H 10/07/17 17:34 POC Glucose 278 MG/DL (70 - 105) H 10/18/17 10:58 Hemoglobin A1c % 9.5 % (4.0-6.0) H 10/07/17 17:24 Calcium 9.6 mg/dL (8.6-10.3) 10/07/17 17:34 Total Bilirubin 0.8 mg/dL (0.3-1.0) 10/07/17 17:34 AST 16 U/L (13-39) 10/07/17 17:34 ALT 10 U/L (7-52) 10/07/17 17:34 Alkaline Phosphatase 59 U/L (34-104) 10/07/17 17:34 Total Protein 6.9 gm/dL (6.0-8.3) 10/07/17 17:34 Albumin 4.1 gm/dL (4.2-5.5) L 10/07/17 17:34 Globulin 2.8 gm/dL 10/07/17 17:34 Albumin/Globulin Ratio 1.5 (1.0-1.8) 10/07/17 17:34 Triglycerides 75 mg/dL (<150) 10/11/17 07:43 Cholesterol 159 mg/dL (<200) 10/11/17 07:43 LDL Cholesterol Direct 89 mg/dL (75-193) 10/11/17 07:43 HDL Cholesterol 60 mg/dL (23-92) 10/11/17 07:43 Urine Source CLEAN C 10/07/17 17:51 Urine Color YELLOW 10/07/17 17:51 Urine Clarity HAZY (CLEAR) 10/07/17 17:51 Urine pH 5.5 (4.6 - 8.0) 10/07/17 17:51 Ur Specific [place] 1.020 (1.005-1.030) 10/07/17 17:51 Urine Protein TRACE mg/dL (NEGATIVE) 10/07/17 17:51 Urine Glucose (UA) >=1000 mg/dL (NEGATIVE) H 10/07/17 17:51 Urine Ketones NEGATIVE mg/dL (NEGATIVE) 10/07/17 17:51 Urine Blood NEGATIVE (NEGATIVE) 10/07/17 17:51 Urine Nitrate POSITIVE (NEGATIVE) H 10/07/17 17:51 Urine Bilirubin NEGATIVE (NEGATIVE) 10/07/17 17:51 Urine Urobilinogen 0.2 E.U./dL (0.2 - 1.0) 10/07/17 17:51 Ur Leukocyte Esterase NEGATIVE (NEGATIVE) 10/07/17 17:51 Urine RBC 0-2 /hpf (0-5) H 10/07/17 17:51 Urine WBC 6-10 /hpf (0-5) 10/07/17 17:51 Ur Epithelial Cells OCCASIONAL /lpf (FEW) 10/07/17 17:51 Urine Bacteria 3+ /hpf (NONE SEEN) H 10/07/17 17:51 Salicylates < 25.0 mg/L (30.0-100.0) L 10/07/17 17:34 Urine Opiates Screen NEGATIVE (NEGATIVE) 10/07/17 17:51 Urine Methadone Screen NEGATIVE (NEGATIVE) 10/07/17 17:51 Acetaminophen < 10.0 ug/mL (10.0-30.0) L 10/07/17 17:34 Ur Barbiturates Screen NEGATIVE (NEGATIVE) 10/07/17 17:51 Ur Tricyclics Screen NEGATIVE (NEGATIVE) 10/07/17 17:51 Ur Phencyclidine Scrn NEGATIVE (NEGATIVE) 10/07/17 17:51 Amphetamines Screen NEGATIVE (NEGATIVE) 10/07/17 17:51 U Methamphetamines Scrn NEGATIVE (NEGATIVE) 10/07/17 17:51 U Benzodiazepines Scrn NEGATIVE (NEGATIVE) 10/07/17 17:51 U Cocaine Metab Screen NEGATIVE (NEGATIVE) 10/07/17 17:51 U Cannabinoids Screen NEGATIVE (NEGATIVE) 10/07/17 17:51 Ethyl Alcohol < 10 mg/dL (0-10) 10/07/17 17:34 - Physical Exam Vitals and I&O: Vital Signs Temp 97.8 F 10/18/17 06:23 Pulse 73 10/18/17 06:23 Resp 20 10/18/17 09:36 BP 121/59 10/18/17 06:23 Pulse Ox 97 10/18/17 06:23 Intake & Output 10/17/17 10/18/17 10/18/17 18:59 06:59 18:59 Intake Total 2200 120 Balance 2200 120 Intake: Oral 2200 120 Other: # Voids 4 3 # Bowel Movements 0 Active Medications: Current Medications Acetaminophen (Tylenol) 650 mg PO Q4HR PRN PRN Reason: Mild Pain / Temp above 100 Stop: 12/06/17 21:40 Atorvastatin Calcium (Lipitor) 10 mg PO HS [facility]; Protocol Stop: 12/07/17 20:59 Last Admin: 10/17/17 20:31 Dose: 10 mg Glyburide (Diabeta) 5 mg PO BIDAC [facility] Stop: 12/07/17 16:29 Last Admin: 10/18/17 06:36 Dose: 5 mg Hydroxyzine Pamoate (Vistaril) 50 mg PO BID [facility]; Protocol Stop: 12/07/17 08:59 Last Admin: 10/18/17 08:42 Dose: 50 mg Insulin Aspart (Novolog) 0 units SUBQ ACHS [facility]; Protocol Stop: 12/07/17 16:29 Last Admin: 10/18/17 11:32 Dose: 4 units Lactobacillus Rhamnosus (Culturelle 15b) 1 each PO DAILY [facility] Stop: 12/09/17 13:59 Last Admin: 10/18/17 08:44 Dose: 1 each Levofloxacin (Levaquin) 500 mg PO DAILY [facility] Stop: 12/08/17 08:59 Last Admin: 10/18/17 08:42 Dose: 500 mg Levothyroxine Sodium (Synthroid) 0.025 mg PO QDAC [facility] Stop: 12/08/17 07:29 Last Admin: 10/18/17 06:40 Dose: 0.025 mg Lorazepam (Ativan) 0.5 mg PO Q4HR PRN; Protocol PRN Reason: Anxiety Stop: 11/06/17 21:40 Last Admin: 10/15/17 20:34 Dose: 0.5 mg Metformin HCl (Glucophage) 850 mg PO TIDWM [facility] Stop: 12/12/17 16:59 Last Admin: 10/18/17 12:00 Dose: 850 mg Miscellaneous (Probiotic Screen) 1 ea MC PRN PRN PRN Reason: PROTOCOL Stop: 12/09/17 11:03 Mupirocin (Bactroban Oint) 1 appl NS BID [facility] Stop: 10/19/17 16:59 Last Admin: 10/18/17 11:55 Dose: 1 appl Olanzapine (Zyprexa) 15 mg PO HS [facility]; Protocol Stop: 12/07/17 20:59 Last Admin: 10/17/17 20:32 Dose: 15 mg Trazodone HCl (Desyrel) 50 mg PO HS [facility]; Protocol Stop: 12/07/17 20:59 Last Admin: 10/17/17 20:32 Dose: 50 mg Zolpidem Tartrate (Ambien) 5 mg PO HS PRN PRN Reason: Insomnia Stop: 12/06/17 21:40 Last Admin: 10/17/17 21:44 Dose: 5 mg General: demented HEENT: NC/AT, PERRLA Neck: Supple Lungs: CTAB Cardiovascular: RRR, Normal S1, Normal S2, without murmur Extremities: excoriation Neurological: alert Internal Medicine Assmt/Plan - Assessment Assessment: acute uti with e.coli dm dyslipidemia hypothyroidism - Plan Plan: monitor bp continue current plan of care Nutritional Asmnt/Malnutr-PDOC - Dietary Evaluation Malnutrition Findings (Please click <Entered> for more info): Nutritional Asmnt/Malnutrition Start: 10/08/17 14: 31 Text: Status: Complete Freq: Protocol: Document 10/08/17 14:31 MELAG (Rec: 10/08/17 15:05 CARYN [id number]) Nutritional Asmnt/Malnutrition Patient General Information Nutritional Screening High Risk Diagnosis psychosis Pertinent Medical Hx/Surgical Hx DM, dyslipidemia, thyroid disorder, right knee fusion, gait abn, schizophrenia Subjective Information Pt seen on wheelchair waiting for ciggratte. Pt stated he did not like the lunch, he only likes burger and fries, mac & cheese, does not like any fruits or veggies. Glucose 345 at admission noted. Not able to provide diabetic education d/t pt mental status . Per EMR, pt consumed 100% of breakfast today. Current Diet Order/ Nutrition Support [facility]-60 Pertinent Medications diabeta, novolog, synthroid, glucophage Pertinent Labs 10/07 Na 131, glucose 345, POC 239 Nutritional Hx/Data Height 5 ft 4 in Height (Calculated Centimeters) 162.6 Current Weight (lbs) 156 lb Weight (Calculated Kilograms) 70.8 Weight (Calculated Grams) 22529.4 [place] Body Weight 130 Body Mass Index (BMI) 26.7 Weight Status Overweight GI Symptoms GI Symptoms None Last BM not indicated Difficult in: None Food Allergies Yes: seafood Skin Integrity/Comment: intact Current %PO Good (75-100%) Estimated Nutritional Goals BEE in Kcals: Using Current wt Calories/Kcals/Kg 23-27 Kcals Calculated 6884-2177 Protein: Using Current wt Protein g/k Protein Calculated 79 Fluid: ml 1817-2133ml (1ml/kcal) Nutritional Problem 1. Problem Problem altered nutrition related labs Etiology hx of DM Signs/Symptoms: glucose 345, POC 239 Malnutrition Alert Is there a minimum of two criteria No selected? Query Text:Check all the applicable criteria. A minimum of two criteria are recommended for diagnosis of either severe or non-severe malnutrition. Malnutrition Related to Morbid Obesity Malnutrition related to morbid obesity No Intervention/Recommendation Comments 1. Continue with [facility] 60 diet as ordered. 2. Monitor PO intake, wt, labs and skin integrity 3. F/U as moderate risk in 3-5 days, 10/11-10/13, PO check Expected Outcomes/Goals Expected Outcomes/Goals 1. PO intake to meet at least 75% of nutritional needs. 2. Wt stability, skin to remain intact, labs to approach WNL.
== END 2017-10-18 16:10 | DRG 885 ==
LOC: ER 16:27 → GERO2 18:26 → GERO 10-09 09:12
PROVIDERS: ADMIT Psychiatry & Neurology Psychiatry; ATTEND Psychiatry & Neurology Psychiatry
DX: F25.0 Schizoaffective disorder, bipolar type (principal); E11.00 Type 2 diabetes mellitus with hyperosmolarity without nonketotic hyperglycemic-hyperosmolar coma (NKHHC); N39.0 Urinary tract infection, site not specified; E78.5 Hyperlipidemia, unspecified; E03.9 Hypothyroidism, unspecified; F17.210 Nicotine dependence, cigarettes, uncomplicated; F29 Unspecified psychosis not due to a substance or known physiological condition; B96.20 Unspecified Escherichia coli [E. coli] as the cause of diseases classified elsewhere; Z88.0 Allergy status to penicillin; Z91.041 Radiographic dye allergy status
CPT/HCPCS: 36415-UA; 71045-TC; 80053-TC; 80061-TC; 80307; 80320-TC; 80329-TC; 81001-TC; 82948-90; 83036-90; 85025-TC; 85610-TC; 87086-90; 93005; J1815; Q0177